=== PATIENT | female | born 2000 | race Caucasian/White ===

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

== ENCOUNTER 2023-09-03 10:53 | Observation (INO) ==
[2023-09-03 12:04] LABS: Basophils # (auto) 0.05 K/uL (0.00-0.20); Basophils % (auto) 0.8 %; Eosinophils # (auto) 0.06 K/uL (0.00-0.50); Hematocrit (blood only) 37.2 % (37.0-47.0); Hemoglobin 12.6 g/dl (12.0-16.0); Immature Granulocytes # (auto) 0.02 K/uL (0.01-0.20); Immature Granulocytes % (auto) 0.3 %; Lymphocytes % (auto) 28.7 %; Mean Corpuscular Hemoglobin 30.7 pg (25.0-34.0); Mean Corpuscular Hgb Conc 33.9 g/dL (32.0-36.0); Mean Corpuscular Volume 90.5 fL (80.0-100.0); Mean Platelet Volume 9.7 fL (9.4-12.4); Monocytes # (auto) 0.42 K/uL (0.11-0.59); Monocytes % (auto) 7.1 %; Neutrophils # (auto) 3.68 K/uL (1.40-6.50); Neutrophils % (auto) 62.1 %; Platelet Count 196 K/uL (130-400); RDW Coefficient of Variation 12.4 % (11.5-14.5); RDW Standard Deviation 40.7 fL (36.4-46.3); Red Blood Count 4.11 M/uL (4.20-5.40); White Blood Count 5.93 K/ul (4.8-10.8)
[2023-09-03 12:13] LABS: INR 1.1 (0.9-1.1); Partial Thromboplastin Time 28 Seconds (21-31); Prothrombin Time 11.9 Seconds (9.0-12.0)
[2023-09-03 12:25] LABS: Albumin Level 4.2 gm/dl (3.4-5.0); Bilirubin,Total 0.7 mg/dl (0.2-1.0); Calcium 9.2 mg/dl (8.6-10.3); Creatinine Clr Calc Pharmacy 153.7 ml/min; Est GFR (Non-African American) 129.4 ml/min; Globulin 2.1 gm/dl (2.5-4.0); Potassium 3.9 mmol/L (3.5-5.1); Total Protein 6.3 gm/dl (6.0-8.3)
--- NOTE | 2023-09-03 12:42 | Emergency Department Note ---
Impression & Plan Stroke-like symptoms, SLE (systemic lupus erythematosus), Right sided weakness ED Provider Note NAME: BENITO ROJAS AGE: 23 SEX: F : 2000 ARRIVES VIA: Ambulance INFORMANT: Patient ED PROVIDER(S): Fabricio Loco MD CHIEF COMPLAINT: Right sided weakness, referred. PLAN: Disposition: Admit MEDICAL DECISION MAKING: The patient is a pleasant 23-year-old woman with a past medical history of lupus, migraines/complex migraines, anxiety who presents to the emergency department via EMS from the infusion center where she was receiving an infusion for her lupus for evaluation of strokelike symptoms which are reported to have had onset at 1030 this morning when she was receiving her infusion. Patient reports she was starting to feel numbness in the right face and staff had commented that her right face appeared to droop. The patient then reported weakness in her right arm and leg as well. The patient is not sure if they thought the symptoms could be related to her infusion. The patient reports having similar episode in the setting of having severe migraine years ago where she had an MRI done and this was negative. However she reports is different and does not feel as though she has had any migraine that could be attributed to this episode. She does admit she has been under a lot of stress including recently moving back home to this area from [place]. Additionally she reports having relationship conflict with her boyfriend. Otherwise she denies any recent fevers, chills, cough congestion. She reports having right lower chest pain at the onset of her symptoms at the infusion center. Of note, the patient did arrive to emergency department during time of high volume, acuity and prolonged emergency department waiting times. Critical pathways initiated from triage for chief complaint of allergic reaction possibly to her infusion. On evaluation the patient is in no acute distress, afebrile stable vital signs. She appears clinically dry. She is exhibiting right facial weakness though also involving the eyebrow and right forehead. She tends to exhibit extremity weakness when raising her upper extremities and lower extremities but there is no drift rather the right side is raised to half the height of the left side and she states this is all she can raise it. While the patients examination is suggestive of a functional component given the patient's history of lupus cannot definitively exclude underlying coagulopathy and risk for stroke now presenting with component of embellishment. Thus, stroke alert was activated. Case was discussed with [facility] [place]. Moore. He agrees that he will assess the patient on the telestroke terminal. While the patient's symptoms may be functional in nature given that it is impossible to definitively determine this when symptoms are "disabling" TNK often will still be administered given this fact. EKG without overt acute ischemia. WBC, H/H and platelets within normal limits. Chemistry without metabolic acidosis. Electrolytes and LFTs are unremarkable. CT head and CT of the head and neck were performed and were negative for ICH, ischemia or severe narrowing or occlusion of large vessels. CTA of the chest also negative for PE or acute cardiopulmonary process [facility] [place] per Dr. Moore was completed. Appreciate consultation and recommendations. Given his examination and the patient maintaining that she feels weakness in her extremity which could be disabling the patient and mother were consented for TNK administration and risks and benefits were reviewed in detail in standard fashion. They did agree to proceed with TNK at this time. No contraindications were identified. TNK was administered. Case was discussed with Felicia [facility]ILL[facility] who will evaluate the patient for admission. Further management per admitting team including ICU admission for observation and MRI imaging. Further management per admitting team. Triage Nursing notes reviewed and agree them. Prior/external medical records reviewed Vital Signs: reviewed Differential diagnosis: Infection, dehydration, metabolic abnormality, hypo/hyperglycemia, electrolyte disturbance, anemia, hypoxia, cardiac sources, intracerebral event, toxicologic, neurologic, as well as other pathologies. ER treatment provided: See below. Diagnostics interpreted by me: ECG: Normal sinus rhythm, 63 bpm, no ectopy, incomplete right bundle branch block, no overt ST elevation or depression, QTc 403, QRS 94. Cardiac Monitoring: An order for continuous cardiac monitoring was placed and demonstrated Normal sinus rhythm, 63 bpm, no ectopy. Laboratory studies: See below Imaging studies: See below Consultation(s): [facility] [place], Dr. Oscar CASTILLO with [facility] HPI: The patient is a pleasant 23-year-old woman with a past medical history of lupus, migraines/complex migraines, anxiety who presents to the emergency department via EMS from the infusion center where she was receiving an infusion for her lupus for evaluation of strokelike symptoms which are reported to have had onset at 1030 this morning when she was receiving her infusion. Patient reports she was starting to feel numbness in the right face and staff had commented that her right face appeared to droop. The patient then reported weakness in her right arm and leg as well. The patient is not sure if they thought the symptoms could be related to her infusion. The patient reports having similar episode in the setting of having severe migraine years ago where she had an MRI done and this was negative. However she reports is different and does not feel as though she has had any migraine that could be attributed to this episode. She does admit she has been under a lot of stress including recently moving back home to this area from [place]. Additionally she reports having relationship conflict with her boyfriend. Otherwise she denies any recent fevers, chills, cough congestion. She reports having right lower chest pain at the onset of her symptoms at the infusion center. ROS: See above HPI for pertinent positives & negatives. A total of 10 systems reviewed and were otherwise negative. VITALS:See Below PHYSICAL EXAMINATION: GENERAL: Awake, alert, well-appearing, in no distress HENT: Normocephalic, atraumatic. Oropharynx unremarkable. EYES: Normal conjunctiva. Sclera non-icteric. EOMI. No nystamgus. PEARRL. NECK: Supple. No nuchal rigidity. FROM. No JVD. RESPIRATORY: Clear to auscultation. CARDIAC: Regular rate, normal rhythm. Extremities warm and well perfused. Pulses equal. ABDOMEN: Soft, non-distended. No tenderness to palpation. No rebound or guarding. No masses. MUSCULOSKELETAL: Chest examination reveals no tenderness. The back is symmetrical on inspection without obvious abnormality. There is no CVA tenderness to palpation. No joint edema. LOWER EXTREMITIES: Calves are equal size bilaterally and non-tender. No edema. No discoloration. NEURO: Exhibiting right facial weakness though also involving the eyebrow and right forehead. She tends to exhibit extremity weakness when raising her upper extremities and lower extremities but there is no drift rather the right side is raised to half the height of the left side and she states this is all she can raise it. DTRs within normal limits bilaterally. No clonus. SKIN: No rash or jaundice noted. Fabricio Loco MD Thrombolytics MDM Did the patient receive IV thrombolytics?: Yes Was there any delay in administration?: Yes Reason(s) for Delay: History of stroke mimic/complex migraine Past Med/Surg History Medical History (Updated 09/04/23 @ 02:43 by Fabricio Loco MD) Bipolar 1 disorder Fibromyalgia SLE (systemic lupus erythematosus) Depression GERD (gastroesophageal reflux disease) Suicidal behavior ODD (oppositional defiant disorder) Surgical History Hx of tonsillectomy Social History Smoking Status: Current every day smoker Tobacco Type: E-cigarettes / Vaping Hx Alcohol Use: Yes Alcohol type: beer Hx Substance Use: No Preferred Language: Amharic Communication Ability: Effective Program Director/Music Director Required: No Beliefs That Will Affect Care: None Current Living Situation: Parent Other Information That Helps Us Care for You: Yes (Anxiety r/t current life happenings) Feels Safe at Home: Yes Safety Concerns: Feels Safe At This Time Assistive Devices: None Allergies Allergies Allergy/AdvReac Type Severity Reaction Status Date / Time pineapple Allergy Mild TONGUE Verified 12/15/20 17:01 [facility] Home Meds Home Medications Medication Instructions Recorded Confirmed hydroxychloroquine 200 mg tablet 400 mg PO HS 07/04/20 09/03/23 clonazepam 0.5 mg tablet 0.5 mg PO BID PRN Anxiety 10/15/20 09/03/23 anifrolumab-fnia 300 mg/2 mL (150 300 mg IV WK 09/03/23 09/03/23 mg/mL) intravenous solution (Saphnelo) cyanocobalamin (vitamin B-12) 100 100 mcg PO DAILY 09/03/23 09/03/23 mcg tablet cyclobenzaprine 5 mg tablet 5 mg PO BID PRN muscle spasms 09/03/23 09/03/23 ergocalciferol (vitamin D2) 50,000 50,000 unit PO 2XWK 09/03/23 09/03/23 unit tablet etonogestrel 68 mg subdermal 68 mg subdermal UD 09/03/23 09/03/23 implant (Nexplanon) prednisone 10 mg tablet See Rx Instructions .Route .COMPLEX 09/03/23 09/03/23 prednisone 5 mg tablet 5 mg PO DAILY 09/03/23 09/03/23 Results & Data (ED) Vital Signs Vital Signs - 24 hr 09/03/23 11:02 09/03/23 11:10 09/03/23 11:30 Temperature 36.9 C Temperature Source Oral Pulse Rate 67 64 74 Pulse Rate [Apical] Pulse Rate from SpO2 Sensor 65 70 Respiratory Rate 14 19 14 Respiratory Effort / Characteristics Non-Labored Accessory Muscle Use Respiratory Depth Normal Blood Pressure 111/65 Blood Pressure [Right Arm] Blood Pressure Mean 80 Blood Pressure Mean [Right Arm] Pulse Oximetry 100 100 99 Oxygen Delivery Method Room Air Sepsis Recent Fever Within 48 Hours No Sepsis New/Unexplained Change in Mental Status No Sepsis Action Taken by Nursing No Action Required 09/03/23 11:30 09/03/23 12:00 09/03/23 12:00 Temperature Temperature Source Pulse Rate 75 Pulse Rate [Apical] Pulse Rate from SpO2 Sensor 73 Respiratory Rate 15 Respiratory Effort / Characteristics Respiratory Depth Blood Pressure 106/67 109/66 Blood Pressure [Right Arm] Blood Pressure Mean 81 82 Blood Pressure Mean [Right Arm] Pulse Oximetry 98 Oxygen Delivery Method Sepsis Recent Fever Within 48 Hours Sepsis New/Unexplained Change in Mental Status Sepsis Action Taken by Nursing 09/03/23 12:01 09/03/23 12:10 09/03/23 12:20 Temperature Temperature Source Pulse Rate 59 L 63 67 Pulse Rate [Apical] Pulse Rate from SpO2 Sensor 62 64 Respiratory Rate 18 16 Respiratory Effort / Characteristics Respiratory Depth Blood Pressure Blood Pressure [Right Arm] Blood Pressure Mean Blood Pressure Mean [Right Arm] Pulse Oximetry 99 99 Oxygen Delivery Method Sepsis Recent Fever Within 48 Hours Sepsis New/Unexplained Change in Mental Status Sepsis Action Taken by Nursing 09/03/23 12:40 09/03/23 12:41 09/03/23 12:50 Temperature Temperature Source Pulse Rate 81 Pulse Rate [Apical] 68 Pulse Rate from SpO2 Sensor 81 Respiratory Rate 20 16 Respiratory Effort / Characteristics Non-Labored Respiratory Depth Normal Blood Pressure 118/69 Blood Pressure [Right Arm] 118/69 Blood Pressure Mean 86 Blood Pressure Mean [Right Arm] 85 Pulse Oximetry 100 100 Oxygen Delivery Method Room Air Sepsis Recent Fever Within 48 Hours Sepsis New/Unexplained Change in Mental Status Sepsis Action Taken by Nursing 09/03/23 13:00 09/03/23 13:00 09/03/23 13:15 Temperature Temperature Source Pulse Rate 102 H 62 Pulse Rate [Apical] Pulse Rate from SpO2 Sensor Respiratory Rate 20 12 Respiratory Effort / Characteristics Respiratory Depth Blood Pressure 126/75 Blood Pressure [Right Arm] Blood Pressure Mean 96 Blood Pressure Mean [Right Arm] Pulse Oximetry Oxygen Delivery Method Sepsis Recent Fever Within 48 Hours Sepsis New/Unexplained Change in Mental Status Sepsis Action Taken by Nursing 09/03/23 13:38 Temperature Temperature Source Pulse Rate Pulse Rate [Apical] 67 Pulse Rate from SpO2 Sensor Respiratory Rate 14 Respiratory Effort / Characteristics Non-Labored Respiratory Depth Normal Blood Pressure Blood Pressure [Right Arm] 110/73 Blood Pressure Mean Blood Pressure Mean [Right Arm] 85 Pulse Oximetry 100 Oxygen Delivery Method Room Air Sepsis Recent Fever Within 48 Hours Sepsis New/Unexplained Change in Mental Status Sepsis Action Taken by Nursing Laboratory Data Attestation: I reviewed the patient's lab results. 09/03/23 11:00 09/03/23 20:37 Lab Results 09/03/23 Range/Units 11:00 WBC 5.93 (4.8-10.8) K/ul RBC 4.11 L (4.20-5.40) M/uL Hgb 12.6 (12.0-16.0) g/dl Hct 37.2 (37.0-47.0) % MCV 90.5 (80.0-100.0) fL MCH 30.7 (25.0-34.0) pg MCHC 33.9 (32.0-36.0) g/dL RDW Std Deviation 40.7 (36.4-46.3) fL RDW Coeff of Igor 12.4 (11.5-14.5) % Plt Count 196 (130-400) K/uL MPV 9.7 (9.4-12.4) fL Immature Gran % (Auto) 0.3 % Neut % (Auto) 62.1 % Lymph % (Auto) 28.7 % Vilas % (Auto) 7.1 % Eos % (Auto) 1.0 % Baso % (Auto) 0.8 % Neut # (Auto) 3.68 (1.40-6.50) K/uL Lymph # (Auto) 1.70 (1.20-3.40) K/uL Vilas # (Auto) 0.42 (0.11-0.59) K/uL Eos # (Auto) 0.06 (0.00-0.50) K/uL Baso # (Auto) 0.05 (0.00-0.20) K/uL Immature Gran # (Auto) 0.02 (0.01-0.20) K/uL PT 11.9 (9.0-12.0) Seconds INR 1.1 (0.9-1.1) APTT 28 (21-31) Seconds PTT Ratio 1.0 Sodium 138 (136-145) mmol/L Potassium 3.9 (3.5-5.1) mmol/L Chloride 110 H (98-107) mmol/L Carbon Dioxide 24 (21-32) mmol/L Anion Gap 4 (3-11) BUN 12 (6-23) mg/dl Creatinine 0.60 (0.6-1.2) mg/dl Est Cr Clr Drug Dosing 153.7 ml/min Est GFR ( Amer) 150.0 ml/min Est GFR (Non-Af Amer) 129.4 ml/min BUN/Creatinine Ratio 20.0 (10-20) Glucose 79 (70-99(Fasting)) mg/dl Calcium 9.2 (8.6-10.3) mg/dl Magnesium 1.9 (1.7-2.4) mg/dl Total Bilirubin 0.7 (0.2-1.0) mg/dl AST 13 (13-39) U/L ALT 10 (7-52) U/L Alkaline Phosphatase 45 (34-104) U/L Troponin I High Sens < 2.3 (0-14) pg/ml Total Protein 6.3 (6.0-8.3) gm/dl Albumin 4.2 (3.4-5.0) gm/dl Globulin 2.1 L (2.5-4.0) gm/dl Albumin/Globulin Ratio 2.0 (0.9-2) TSH 1.349 (0.300-4.500) uIu/ml HCG, Quant < 1 mIU/ml Administered Medications Cyclobenzaprine HCl (Cyclobenzaprine Hcl 5 Mg Tab) 5 mg PO BID PRN PRN Reason: muscle spasms Stop: 10/03/23 16:00 Last Admin: 09/03/23 20:58 Dose: 5 mg Documented By: MNM Hydroxychloroquine Sulfate (Hydroxychloroquine Sulfate 200 Mg Tab) 400 mg PO HS HERBIE Stop: 10/03/23 20:59 Last Admin: 09/03/23 20:16 Dose: 400 mg Documented By: TANIYA Acetaminophen (Ofirmev) 1,000 mg in 100 mls @ 400 mls/hr IV Q8H PRN PRN Reason: Pain Stop: 09/06/23 15:42 Last Infusion: 09/03/23 16:05 Dose: Infused Documented By: Admin: 09/03/23 15:50 Dose: 400 mls/hr Documented By: MONSE Miscellaneous (Icu Protocol For Hyperglycemia) 1 each N/A ACHS [facility] Stop: 09/05/23 16:29 Last Admin: 09/03/23 20:16 Dose: Not Given Documented By: Admin: 09/03/23 17:32 Dose: Not Given Documented By: MONSE Discontinued Medications Acetaminophen (Acetaminophen 1000 Mg/100 Ml Iv) Confirm Administered Dose 1,000 mg IV .STK-MED ONE Stop: 09/03/23 15:47 Last Admin: 09/03/23 15:57 Dose: Not Given Documented By: MONSE Sodium Chloride (Nss) 1,000 mls @ 999 mls/hr IV .Q1H1M ONE Stop: 09/03/23 13:35 Last Infusion: 09/03/23 13:47 Dose: Infused Documented By: Admin: 09/03/23 12:45 Dose: 999 mls/hr Documented By: NELDA Acetaminophen (Ofirmev) 1,000 mg in 100 mls @ 400 mls/hr IV NOW STA Stop: 09/03/23 12:49 Last Infusion: 09/03/23 13:04 Dose: Infused Documented By: Admin: 09/03/23 12:44 Dose: 400 mls/hr Documented By: NELDA Tenecteplase 18 mg/ Syringe 3.6 mls @ 43.2 mls/min IV TODAY@1335 [facility]; Protocol Stop: 09/03/23 15:00 Last Admin: 09/03/23 15:56 Dose: Not Given Documented By: MONSE Ioversol (Optiray 320 125ml) 118 ml IV ONCE ONE Stop: 09/03/23 12:45 Last Admin: 09/03/23 12:44 Dose: 118 ml Documented By: EULOGIO Miscellaneous (Stat Iv/Im) 1 each N/A NOW STA Stop: 09/03/23 14:42 Last Admin: 09/03/23 14:45 Dose: 1 each Documented By: KATHERINE Ondansetron HCl (Ondansetron Inj 2 Mg/Ml 2 Ml Vial) 4 mg IV NOW STA Stop: 09/03/23 12:36 Last Admin: 09/03/23 12:44 Dose: 4 mg Documented By: NELDA Sodium Chloride (Sodium Chloride 0.9% 10ml Flush) 20 ml IV NOW STA Stop: 09/03/23 14:42 Last Admin: 09/03/23 14:45 Dose: 20 ml Documented By: KATHERINE Imaging Data Radiologist's Impression: Head CT 09/03/23 12:25 CT SCAN OF THE BRAIN WITHOUT IV CONTRAST CLINICAL HISTORY: CT of the brain dated 01/29/2022. MRI of the brain dated 01/29/2022. TECHNIQUE: Unenhanced axial CT scan of the brain is performed from the vertex to the skull base. A dose lowering technique was utilized adhering to the principles of ALARA. FINDINGS: Brain parenchyma: The brain parenchyma is normal in appearance. There is no hemorrhage, mass effect, or evidence of acute territorial ischemia by CT criteria. Luis-white matter differentiation is preserved. No extra-axial fluid collection is seen. Ventricles, sulci, cisterns: Normal in configuration. Intracranial vasculature: The visualized intracranial vasculature at the skull base is normal in appearance. Calvarium: Unremarkable. Sinuses and mastoids: The visualized paranasal sinuses are clear. The mastoid air cells are well pneumatized. Orbits: The bony orbits are grossly intact. IMPRESSION: There is no hemorrhage, mass effect, or evidence of acute territorial ischemia by CT criteria. ACT 112: Negative or not required by law. Electronically signed by: Mani Esparza M.D. 09/03/2023 12:46 PM Head CTA 09/03/23 12:25 HEAD CTA HISTORY: Right sided weakness TECHNIQUE: Multiaxial CT images of the head were performed following the intravenous administration of contrast to evaluate the major cerebral vessels. 3D/MIP images were also obtained. Sagittal and coronal reformats were reviewed. A dose lowering technique was utilized adhering to the principles of ALARA. COMPARISON: Head CTA 01/29/2022. FINDINGS: There is no mass, hematoma, midline shift, or acute infarct. Visualized intracranial internal carotid arteries, distal vertebral arteries, and basilar artery are widely patent. There is no significant stenosis, occlusion, or aneurysm seen within the bilateral ACAs, MCAs, or monotypist. The major dural venous sinuses are patent. There is a persistent left posterior circulation again noted. IMPRESSION: No significant stenosis, occlusion, or aneurysm within the [place]. ACT 112: Negative or not required by law. Electronically signed by: Scott Hernández M.D. 09/03/2023 1:04 PM Neck CTA 09/03/23 12:25 CT ANGIOGRAM OF THE NECK CLINICAL HISTORY: Right-sided weakness. Strokelike symptoms. COMPARISON STUDY: CT angiogram of the neck dated 01/29/2022. TECHNIQUE: Following the IV administration of 118 of Optiray 320, CT angiogram of the neck was performed from the aortic arch to the skull base. Images are reviewed in the axial, sagittal, and coronal planes. 3-D MIPS images are created and assessed. IV contrast was administered without complication. All measurements were calculated based on NASCET criteria. A dose lowering technique was utilized adhering to the principles of ALARA. FINDINGS: Thoracic aorta: Visualized portions of the thoracic aorta are normal in caliber. The aortic arch demonstrates standard 3-vessel anatomy. Right carotid arterial system: The right common carotid artery is widely patent, as are the right internal and external carotid arteries. Left carotid arterial system: The left common carotid artery is widely patent, as are the left internal and external carotid arteries. Vertebral arteries: Widely patent bilaterally noting left-sided dominance. Subclavian arteries: Widely patent bilaterally. Intracranial vasculature: The visualized intracranial vessels at the skull base are patent. Jugular veins: Patent bilaterally. Brain parenchyma: The visualized brain parenchyma the skull base is within normal limits. Lung apices: Partially visualized upper lobe lung parenchyma appears clear. Soft tissues: The visualized pharyngeal soft tissues are normal in appearance noting angiographic phase technique. The oropharyngeal airway appears widely patent. The salivary and thyroid glands are normal in appearance. No cervical lymphadenopathy is seen. Skeletal structures: The visualized calvarium at the skull base appears intact. The imaged cervical spine is within normal limits. Sinuses and mastoids: There is a 2.1 cm retention cyst in the right maxillary antrum. The mastoid air cells are well pneumatized. IMPRESSION: Unremarkable CT angiogram of the neck. ACT 112: Negative or not required by law. Electronically signed by: Mani Esparza M.D. 09/03/2023 1:01 PM Chest CTA 09/03/23 12:26 CT ANGIOGRAPHY OF THE CHEST, PULMONARY EMBOLUS PROTOCOL CLINICAL HISTORY: Right sided weakness, cp, SLE, r/o PE COMPARISON STUDY: Chest CT August 23, 2020. Chest radiograph October 24, 2022. TECHNIQUE: Following IV administration of 118 mL of Optiray, helical axial images of the chest were obtained utilizing the pulmonary embolus protocol. Maximal intensity projections and sagittal and coronal reformats were viewed on an independent 3D workstation. IV contrast was administered without complication. Automated exposure control was utilized for the study. A dose lowering technique was utilized adhering to the principles of ALARA. CT DOSE: 1973.95 mGy.cm FINDINGS: No pulmonary emboli are identified. There is no thoracic aortic dissection. Size of the heart is normal. There is no pericardial effusion. No enlarged thoracic lymph nodes are present. There is no pneumothorax or pleural effusion. No consolidation is identified. A 4 mm subpleural left lower lobe nodule on image [address] of August 23, 2020. This is benign. Upper abdomen is unremarkable. IMPRESSION: 1. No pulmonary emboli identified. 2. No acute intrathoracic findings ACT 112: Negative or not required by law. Electronically signed by: Checo Johnson M.D. 09/03/2023 12:54 PM Discharge Plan Visit Data Chief Complaint: Allergic Reaction Stated Complaint: RIGHT SIDE NUMBNESS ED Provider: Fabricio Loco Discharge Problem: Stroke-like symptoms, SLE (systemic lupus erythematosus), Right sided weakness Patient Disposition: Admitted As Inpatient Discharge Instructions Interventions: ED Discharge Assessment Last Done: 09/03/23 14:59 Discharge Problem: SLE (systemic lupus erythematosus) Qualifiers: Systemic lupus erythematosus type: unspecified Systemic lupus erythematosus organ involvement: unspecified Qualified Code(s): M32.9 - Systemic lupus erythematosus, unspecified
[2023-09-03] MEDS: ONDANSETRON INJ 2 MG/ML 2 ML VIAL IV STA (12:44)
[2023-09-03] MEDS: ACETAMINOPHEN 1,000 MG/100 ML VIAL IV STA (12:44)
[2023-09-03] MEDS: OPTIRAY 320 125ml IV ONE (12:44)
[2023-09-03] MEDS: SODIUM CHLORIDE 0.9% 1,000 ML IV ONE (12:45)
--- NOTE | 2023-09-03 12:48 | CT Scan Report ---
CT SCAN OF THE BRAIN WITHOUT IV CONTRAST CLINICAL HISTORY: CT of the brain dated 01/29/2022. MRI of the brain dated 01/29/2022. TECHNIQUE: Unenhanced axial CT scan of the brain is performed from the vertex to the skull base. A d ose lowering technique was utilized adhering to the principles of ALA. FINDINGS: Brain parenchyma: The brain parenchyma is normal in appearance. There is no hemorrhage, mass effect, or evidence of acute territorial ischemia by CT criteria. Luis-white matter differentiation is preser stefania. No extra-axial fluid collection is seen. Ventricles, sulci, cisterns: Normal in configuration. Intracranial vasculature: The visualized intracranial vasculature at the skull base is normal in appe arance. Calvarium: Unremarkable. Sinuses and mastoids: The visualized paranasal sinuses are clear. The mastoid air cells are well pneu matized. Orbits: The bony orbits are grossly intact. IMPRESSION: There is no hemorrhage, mass effect, or evidence of acute territorial ischemia by CT michelle watkins. ACT 112: Negative or not required by law. Electronically signed by: Mani Esparza M.D. 09/03/2023 12:46 PM
--- NOTE | 2023-09-03 12:56 | CT Scan Report ---
CT ANGIOGRAPHY OF THE CHEST, PULMONARY EMBOLUS PROTOCOL CLINICAL HISTORY: Right sided weakness, cp, SLE, r/o PE COMPARISON STUDY: Chest CT August 23, 2020. Chest radiograph October 24, 2022. TECHNIQUE: Following IV administration of 118 mL of Optiray, helical axial images of the chest were o btained utilizing the pulmonary embolus protocol. Maximal intensity projections and sagittal and cor onal reformats were viewed on an independent 3D workstation. IV contrast was administered without co mplication. Automated exposure control was utilized for the study. A dose lowering technique was ut ilized adhering to the principles of ALARA. CT DOSE: 1973.95 mGy.cm FINDINGS: No pulmonary emboli are identified. There is no thoracic aortic dissection. Size of the he art is normal. There is no pericardial effusion. No enlarged thoracic lymph nodes are present. There is no pneumothorax or pleural effusion. No consolidation is identified. A 4 mm subpleural left lower lobe nodule on image [address] of August 23, 2020. This is benign. Upper abdomen is unr emarkable. IMPRESSION: 1. No pulmonary emboli identified. 2. No acute intrathoracic findings ACT 112: Negative or not required by law. Electronically signed by: Checo Johnson M.D. 09/03/2023 12:54 PM
--- NOTE | 2023-09-03 13:02 | CT Scan Report ---
CT ANGIOGRAM OF THE NECK CLINICAL HISTORY: Right-sided weakness. Strokelike symptoms. COMPARISON STUDY: CT angiogram of the neck dated 01/29/2022. TECHNIQUE: Following the IV administration of 118 of Optiray 320, CT angiogram of the neck was perfor med from the aortic arch to the skull base. Images are reviewed in the axial, sagittal, and coronal p lanes. 3-D MIPS images are created and assessed. IV contrast was administered without complication. A ll measurements were calculated based on NASCET criteria. A dose lowering technique was utilized adh ering to the principles of ALARA. FINDINGS: Thoracic aorta: Visualized portions of the thoracic aorta are normal in caliber. The aortic arch demo nstrates standard 3-vessel anatomy. Right carotid arterial system: The right common carotid artery is widely patent, as are the right int ernal and external carotid arteries. Left carotid arterial system: The left common carotid artery is widely patent, as are the left news internship al and external carotid arteries. Vertebral arteries: Widely patent bilaterally noting left-sided dominance. Subclavian arteries: Widely patent bilaterally. Intracranial vasculature: The visualized intracranial vessels at the skull base are patent. Jugular veins: Patent bilaterally. Brain parenchyma: The visualized brain parenchyma the skull base is within normal limits. Lung apices: Partially visualized upper lobe lung parenchyma appears clear. Soft tissues: The visualized pharyngeal soft tissues are normal in appearance noting angiographic pha se technique. The oropharyngeal airway appears widely patent. The salivary and thyroid glands are nor mal in appearance. No cervical lymphadenopathy is seen. Skeletal structures: The visualized calvarium at the skull base appears intact. The imaged cervical s pine is within normal limits. Sinuses and mastoids: There is a 2.1 cm retention cyst in the right maxillary antrum. The mastoid air cells are well pneumatized. IMPRESSION: Unremarkable CT angiogram of the neck. ACT 112: Negative or not required by law. Electronically signed by: Mani Esparza M.D. 09/03/2023 1:01 PM
[2023-09-03 13:03] LABS: Magnesium 1.9 mg/dl (1.7-2.4)
--- NOTE | 2023-09-03 13:05 | CT Scan Report ---
HEAD CTA HISTORY: Right sided weakness TECHNIQUE: Multiaxial CT images of the head were performed following the intravenous administration o f contrast to evaluate the major cerebral vessels. 3D/MIP images were also obtained. Sagittal and co dagmar reformats were reviewed. A dose lowering technique was utilized adhering to the principles of A JESU. COMPARISON: Head CTA 01/29/2022. FINDINGS: There is no mass, hematoma, midline shift, or acute infarct. Visualized intracranial internal medicine nurse practitioner al carotid arteries, distal vertebral arteries, and basilar artery are widely patent. There is no sig nificant stenosis, occlusion, or aneurysm seen within the bilateral ACAs, MCAs, or environmental compliance engineer. The major du ral venous sinuses are patent. There is a persistent left posterior circulation again noted. IMPRESSION: No significant stenosis, occlusion, or aneurysm within the [place]. ACT 112: Negative or not required by law. Electronically signed by: Scott Hernández M.D. 09/03/2023 1:04 PM
[2023-09-03 13:31] LABS: Thyroid Stimulating Hormone 1.349 uIu/ml (0.300-4.500)
[2023-09-03] MEDS: TENECTEPLASE 18 MG in SYRINGE 0 ML IV ONE (13:35)
--- NOTE | 2023-09-03 14:28 | Critical Care Consultation ---
Date of Consultation September 03, 2023 Assessment & Plan (1) Stroke-like symptoms: (2) SLE (systemic lupus erythematosus): (3) Anxiety and depression: Plan Reason Critically Ill: 23-year-old female with past medical history of lupus admitted to hospital for facial numbness. Got TN K in the ED. Sent to ICU for monitoring Neuro - [facility] ICU: Negative --Strokelike symptoms S/p TNK in the ED 09/03/2023 Continue with neurochecks Repeat CT head in 24 hours Aspirin after 24 hours if no bleed --History of anxiety/depression On clonazepam and buspirone Cardiac - -- No acute issues Respiratory - CTA chest 09/03/2023 personally reviewed: Small cyst left lower lobe Left lower lobe pleural-based 4 mm pulmonary nodule No significant mediastinal lymphadenopathy GI - -- No acute issues RENAL/LYTES - -- No acute issues Monitor BUNs/creatinine ENDO - -- ICU hyperglycemia protocol HEME - -- Monitor H&H ID - -- No concern for any infectious etiology Rheumatology- -- SLE with recent flareup On anifrolumab weekly along with hydroxychloroquine at home Was also taking prednisone --Prophylaxis VTE: None GI: None Lines: Peripheral Diet: N.p.o. Plan: Continue with neurochecks as per protocol Aspiration precautions Follow-up MRI of the brain Continue with home dose of prednisone and tapered off as per the original plan Please note the above document was generated using voice recognition software. It may contain grammatical, syntax or spelling errors.Any formal questions or concerns about the content, text or information contained within the body of this dictation should be directly addressed to the provider for clarification. History of Present Illness History of Present Illness 23-year-old female presents to the hospital with complaints of numbness of the face Past medical history: Lupus, history of migraine Patient got TNK for strokelike symptoms and sent to the ICU for further monitoring At the time of examination patient's sister as well as mother were in the room. Patient stated that she had onset of numbness on the right face as well as weakness of the right upper and right lower extremity. She does have history of migraine and has had complex migraine in the past with some similar symptoms but is always followed by pain and and preceded by aura which did not happen this time. She did have a recent flare of her lupus for which she was given prednisone. Does have chronic subjective fever and chills which she relates to lupus. Nothing change inadvertently. No dysuria, or diarrhea. No nausea vomiting Does have some abdominal discomfort which is also chronic. No blurry vision right now. Denies any headache right now Social history: Smokes socially and also vapes. Allergies Allergy/AdvReac Type Severity Reaction Status Date / Time pineapple Allergy Mild TONGUE Verified 12/15/20 17:01 SWELLS Home Medications Medication Instructions Recorded Confirmed Type hydroxychloroquine 200 mg tablet 400 mg PO HS 07/04/20 09/03/23 History clonazepam 0.5 mg tablet 0.5 mg PO BID PRN Anxiety 10/15/20 09/03/23 History anifrolumab-fnia 300 mg/2 mL (150 300 mg IV WK 09/03/23 09/03/23 History mg/mL) intravenous solution (Saphnelo) cyanocobalamin (vitamin B-12) 100 100 mcg PO DAILY 09/03/23 09/03/23 History mcg tablet cyclobenzaprine 5 mg tablet 5 mg PO BID PRN muscle spasms 09/03/23 09/03/23 History ergocalciferol (vitamin D2) 50,000 50,000 unit PO 2XWK 09/03/23 09/03/23 History unit tablet etonogestrel 68 mg subdermal 68 mg subdermal UD 09/03/23 09/03/23 History implant (Nexplanon) prednisone 10 mg tablet See Rx Instructions .Route .COMPLEX 09/03/23 09/03/23 History prednisone 5 mg tablet 5 mg PO DAILY 09/03/23 09/03/23 History Patient History Medical History (Updated 09/03/23 @ 16:10 by Karl Winter MD, [facility]) Bipolar 1 disorder Depression SLE (systemic lupus erythematosus) GERD (gastroesophageal reflux disease) Fibromyalgia Suicidal behavior ODD (oppositional defiant disorder) Surgical History Hx of tonsillectomy Social History Smoking Status: Current some day smoker Tobacco Type: E-cigarettes / Vaping Preferred Language: Tuval[place] Feels Safe at Home: Yes Review of Systems 2 Review of Systems: All systems reviewed & are unremarkable except as noted in HPI & below Physical Exam 2 Physical Exam: Constitutional: No acute distress HEENT: EOMI, PERRLA, no nystagmus, minimal slurring of speech. No clear facial droop appreciated Respiratory system: Good air entry bilaterally, no wheeze, no rhonchi, no crackles CVS: S1-S2 positive, no murmurs or gallops Abdomen: Soft, nontender, nondistended, positive bowel sounds x4 Extremities: +2 pulses bilaterally radialis/ dorsalis pedis, no cyanosis, no edema Neuro: Awake alert oriented x3, cranial nerves II through XII grossly intact, strength left upper and left lower extremity 5 out of 5, right upper extremity 3/5, right lower extremity 4/5 Psych: Normal mood and affect G/U: No Lopez Skin: no rashes, warm and dry Lymphatic: no cervical or axillary lymphadenopathy Results & Data Results & Data Vital Signs (Past 12 Hours) Vital Signs Temp Pulse Pulse Resp BP BP Pulse Ox 09/03/23 13:38 67 14 110/73 100 09/03/23 13:15 62 12 09/03/23 13:00 126/75 09/03/23 13:00 102 H 20 09/03/23 12:50 81 16 100 09/03/23 12:41 68 20 118/69 100 09/03/23 12:40 118/69 09/03/23 12:20 67 16 99 09/03/23 12:10 63 18 99 09/03/23 12:01 59 L 09/03/23 12:00 109/66 09/03/23 12:00 75 15 98 09/03/23 11:30 106/67 09/03/23 11:30 74 14 99 09/03/23 11:10 64 19 100 09/03/23 11:02 36.9 C 67 14 111/65 100 O2 Del Method 09/03/23 13:38 Room Air 09/03/23 13:15 09/03/23 13:00 09/03/23 13:00 09/03/23 12:50 09/03/23 12:41 Room Air 09/03/23 12:40 09/03/23 12:20 09/03/23 12:10 09/03/23 12:01 09/03/23 12:00 09/03/23 12:00 09/03/23 11:30 09/03/23 11:30 09/03/23 11:10 09/03/23 11:02 Room Air Laboratory Results 09/03/23 11:00 09/03/23 11:00 Coding Level of Care Code 84852 IN/OBS CONSULT LVL 4,60M Diagnoses Stroke-like symptoms R29.90 SLE (systemic lupus erythematosus) M32.9 Anxiety and depression F41.9; F32.A
[2023-09-03] MEDS: SODIUM CHLORIDE 0.9% 10ML FLUSH IV STA (14:45)
[2023-09-03] MEDS: STAT IV/IM STA (14:45)
[2023-09-03] MEDS ORDERED: No Aspirin within 24hrs of THROMBOLYTIC-Stroke PO SCH (14:45)
[2023-09-03] MEDS ORDERED: PHARMACIST DISCHARGE MED REC CONSULT PRN (15:38)
[2023-09-03] MEDS: ACETAMINOPHEN 1,000 MG/100 ML VIAL IV PRN (15:50)
--- NOTE | 2023-09-03 15:52 | Neurology Consultation ---
Date of Consultation September 03, 2023 Assessment & Plan (1) Stroke-like symptoms: 23F with a PMH of Lupus, bipolar and PTSD who presents with right sided weaknes sp TNK. On exam she reports continued right sided weakness/numbness which is improving. CT and CTA were unremarkable and she was given TNK. She is at increased risk for thromboembolic events secondary to her Lupus diagnosis and MRI is pending. If MRI shows a stroke she will need a hypercoagulable work up and echo with bubble study. If MRI is negative the differential is acephalic migraine with aura vs conversion disorder and she has risk factors for both. Plan -- post-TNK care per ICU -- [address] head -- ASA after repeat CT head -- MRI pending -- echocardiogram with bubble study -- hypercoagulable work up pending echo and presence/absence of shunt PFO -- PT/OT/BUZZLE BUFFER -- no indication for statin Telehealth Consultation Telehealth Information Telehealth Information: I performed this visit using a real-time telehealth connection between my location and the patients location ([facility]). After connecting through interactive tele-video, patient was identified by name and date of and/or wristband check.Patient (or authorized healthcare new accounts representative) was informed that this was a telemedicine visit and it was being conducted confidentially over secure lines. My office door was closed and no one else was present in the room with me.Patient (or authorized healthcare new accounts representative) provided consent to proceed with the visit, expressed an understanding of privacy and security of the telemedicine visit, and gave permission to have a hospital new accounts representative in the room in order to assist with the visit and to conduct portions of the visit, as needed. I informed the patient (or authorized healthcare new accounts representative) that I reviewed their record and presented the opportunity for them to ask any questions regarding the visit today. The patient agreed to participate. History of Present Illness Reason for Consultation: Stroke symptoms s/p TNK Attending Physician: Nina Peacock MD History of Present Illness Zhane Galvez is a 23F with a PMH of Bipolar, Lupus on Hydroxychloroquine and Belimumab and migraine with aura who presents with right sided weakness. She reports that she was at the infusion center getting her belimumab infusion when she started having tingling in the right side. This was followed by numbness of the right side and then progressed to weakness. The progression took about 5 minutes. She reports that her whole right side was numb and weak, but that it is now doing much better. She continues to endorse mild numbness of the right and mild weakness but can move everything against gravity. She does report a lupus flare over the last week with increased joint pain, fatigue, weakness, and muscle pain from her baseline. She had a similar experience several years ago when she couldn't move one side of her body but that was in the setting of a terrible headache. She denies a current headache. She denies fevers, SOB, nausea, vertigo but did endorse dizziness while getting her IV placed, vision changes or difficulty finding the right words. She says that this week has been the hardest week of her life and she is under an unbelievable amount of stress. Allergies Allergy/AdvReac Type Severity Reaction Status Date / Time pineapple Allergy Mild TONGUE Verified 12/15/20 17:01 SWELLS Home Medications Medication Instructions Recorded Confirmed Type hydroxychloroquine 200 mg tablet 400 mg PO HS 07/04/20 09/03/23 History clonazepam 0.5 mg tablet 0.5 mg PO BID PRN Anxiety 10/15/20 09/03/23 History anifrolumab-fnia 300 mg/2 mL (150 300 mg IV WK 09/03/23 09/03/23 History mg/mL) intravenous solution (Saphnelo) cyanocobalamin (vitamin B-12) 100 100 mcg PO DAILY 09/03/23 09/03/23 History mcg tablet cyclobenzaprine 5 mg tablet 5 mg PO BID PRN muscle spasms 09/03/23 09/03/23 History ergocalciferol (vitamin D2) 50,000 50,000 unit PO 2XWK 09/03/23 09/03/23 History unit tablet etonogestrel 68 mg subdermal 68 mg subdermal UD 09/03/23 09/03/23 History implant (Nexplanon) prednisone 10 mg tablet See Rx Instructions .Route .COMPLEX 09/03/23 09/03/23 History prednisone 5 mg tablet 5 mg PO DAILY 09/03/23 09/03/23 History Patient History Medical History (Updated 09/03/23 @ 16:10 by Karl Winter MD, [facility]) Bipolar 1 disorder Depression SLE (systemic lupus erythematosus) GERD (gastroesophageal reflux disease) Fibromyalgia Suicidal behavior ODD (oppositional defiant disorder) Surgical History Hx of tonsillectomy Social History Smoking Status: Current some day smoker Tobacco Type: E-cigarettes / Vaping Preferred Language: Maori Feels Safe at Home: Yes Review of Systems See HPI Physical Exam Awake, alert and orientated x4, no aphasia or neglect. pupils equal, EOM intact, right face numbness, intermittent right face weakness, tongue midline. holds all extremities against gravity, drift without pronation in the right arm. right hemibody sensation loss, Gait deferred, no dysmetria on FTN NIH 2 for right face weakness and sensation loss Results & Data Vital Signs (Past 12 Hours) Vital Signs Temp Pulse Pulse Resp BP BP Pulse Ox 09/03/23 14:59 71 20 103/66 100 09/03/23 14:49 67 20 100 09/03/23 14:49 67 20 103/66 100 09/03/23 13:38 67 14 110/73 100 09/03/23 13:15 62 12 09/03/23 13:00 126/75 09/03/23 13:00 102 H 20 09/03/23 12:50 81 16 100 09/03/23 12:41 68 20 118/69 100 09/03/23 12:40 118/69 09/03/23 12:20 67 16 99 09/03/23 12:10 63 18 99 09/03/23 12:01 59 L 09/03/23 12:00 109/66 09/03/23 12:00 75 15 98 09/03/23 11:30 106/67 09/03/23 11:30 74 14 99 09/03/23 11:10 64 19 100 09/03/23 11:02 36.9 C 67 14 111/65 100 O2 Del Method 09/03/23 14:59 Room Air 09/03/23 14:49 Room Air 09/03/23 14:49 Room Air 09/03/23 13:38 Room Air 09/03/23 13:15 09/03/23 13:00 09/03/23 13:00 09/03/23 12:50 09/03/23 12:41 Room Air 09/03/23 12:40 09/03/23 12:20 09/03/23 12:10 09/03/23 12:01 09/03/23 12:00 09/03/23 12:00 09/03/23 11:30 09/03/23 11:30 09/03/23 11:10 09/03/23 11:02 Room Air Laboratory Results Abnormal Lab Results 09/03/23 11:00 WBC 5.93 RBC 4.11 L Hgb 12.6 Hct 37.2 MCV 90.5 MCH 30.7 MCHC 33.9 RDW Std Deviation 40.7 RDW Coeff of Igor 12.4 Plt Count 196 MPV 9.7 Immature Gran % (Auto) 0.3 Neut % (Auto) 62.1 Lymph % (Auto) 28.7 Toole % (Auto) 7.1 Eos % (Auto) 1.0 Baso % (Auto) 0.8 Neut # (Auto) 3.68 Lymph # (Auto) 1.70 Toole # (Auto) 0.42 Eos # (Auto) 0.06 Baso # (Auto) 0.05 Immature Gran # (Auto) 0.02 PT 11.9 INR 1.1 APTT 28 PTT Ratio 1.0 Sodium 138 Potassium 3.9 Chloride 110 H Carbon Dioxide 24 Anion Gap 4 BUN 12 Creatinine 0.60 Est Cr Clr Drug Dosing 153.7 Est GFR ( Amer) 150.0 Est GFR (Non-Af Amer) 129.4 BUN/Creatinine Ratio 20.0 Glucose 79 Calcium 9.2 Magnesium 1.9 Total Bilirubin 0.7 AST 13 ALT 10 Alkaline Phosphatase 45 Troponin I High Sens < 2.3 Total Protein 6.3 Albumin 4.2 Globulin 2.1 L Albumin/Globulin Ratio 2.0 TSH 1.349 HCG, Quant < [address] 09/03/23 12:25 CT SCAN OF THE BRAIN WITHOUT IV CONTRAST CLINICAL HISTORY: CT of the brain dated 01/29/2022. MRI of the brain dated 01/29/2022. TECHNIQUE: Unenhanced axial CT scan of the brain is performed from the vertex to the skull base. A dose lowering technique was utilized adhering to the principles of ALARA. FINDINGS: Brain parenchyma: The brain parenchyma is normal in appearance. There is no hemorrhage, mass effect, or evidence of acute territorial ischemia by CT c tricia. Luis-white matter differentiation is preserved. No extra-axial fluid collection is seen. Ventricles, sulci, cisterns: Normal in configuration. Intracranial vasculature: The visualized intracranial vasculature at the skull base is normal in appearance. Calvarium: Unremarkable. Sinuses and mastoids: The visualized paranasal sinuses are clear. The mastoid air cells are well pneumatized. Orbits: The bony orbits are grossly intact. IMPRESSION: There is no hemorrhage, mass effect, or evidence of acute territorial ischemia by CT criteria. ACT 112: Negative or not required by law. Electronically signed by: Mani Esparza M.D. 09/03/2023 12:46 PM Head CTA 09/03/23 12:25 HEAD CTA HISTORY: Right sided weakness TECHNIQUE: Multiaxial CT images of the head were performed following the intravenous administration of contrast to evaluate the major cerebral vessels. 3D/MIP images were also obtained. Sagittal and coronal reformats were reviewed. A dose lowering technique was utilized adhering to the principles of ALARA. COMPARISON: Head CTA 01/29/2022. FINDINGS: There is no mass, hematoma, midline shift, or acute infarct. Visua lized intracranial internal carotid arteries, distal vertebral arteries, and basilar artery are widely patent. There is no significant stenosis, occlusion, or aneurysm seen within the bilateral ACAs, MCAs, or plastic fixture builder. The major dural venous sinuses are patent. There is a persistent left posterior circulation again noted. IMPRESSION: No significant stenosis, occlusion, or aneurysm within the [place]. ACT 112: Negative or not required by law. Electronically signed by: Scott Hernández M.D. 09/03/2023 1:04 PM Neck CTA 09/03/23 12:25 CT ANGIOGRAM OF THE NECK CLINICAL HISTORY: Right-sided weakness. Strokelike symptoms. COMPARISON STUDY: CT angiogram of the neck dated 01/29/2022. TECHNIQUE: Following the IV administration of 118 of Optiray 320, CT angiogram of the neck was performed from the aortic arch to the skull base. Images are reviewed in the axial, sagittal, and coronal planes. 3-D MIPS images are created and assessed. IV contrast was administered without complication. All measurements were calculated based on NASCET criteria. A dose lowering technique was utilized adhering to the principles of ALARA. FINDINGS: Thoracic aorta: Visualized portions of the thoracic aorta are normal in caliber. The aortic arch demonstrates standard 3-vessel anatomy. Right carotid arterial system: The right common carotid artery is widely patent, as are the right internal and external carotid arteries. Left carotid arterial system: The left common carotid artery is widely patent, as are the left internal and external carotid arteries. Vertebral arteries: Widely patent bilaterally noting left-sided dominance. Subclavian arteries: Widely patent bilaterally. Intracranial vasculature: The visualized intracranial vessels at the skull base are patent. Jugular veins: Patent bilaterally. Brain parenchyma: The visualized brain parenchyma the skull base is within normal limits. Lung apices: Partially visualized upper lobe lung parenchyma appears clear. Soft tissues: The visualized pharyngeal soft tissues are normal in appearance noting angiographic phase technique. The oropharyngeal airway appears widely p atent. The salivary and thyroid glands are normal in appearance. No cervical lymphadenopathy is seen. Skeletal structures: The visualized calvarium at the skull base appears intact. The imaged cervical spine is within normal limits. Sinuses and mastoids: There is a 2.1 cm retention cyst in the right maxillary antrum. The mastoid air cells are well pneumatized. IMPRESSION: Unremarkable CT angiogram of the neck. ACT 112: Negative or not required by law. Electronically signed by: Mani Esparza M.D. 09/03/2023 1:01 PM Chest CTA 09/03/23 12:26 CT ANGIOGRAPHY OF THE CHEST, PULMONARY EMBOLUS PROTOCOL CLINICAL HISTORY: Right sided weakness, cp, SLE, r/o PE COMPARISON STUDY: Chest CT August 23, 2020. Chest radiograph October 24, 2022. TECHNIQUE: Following IV administration of 118 mL of Optiray, helical axial images of the chest were obtained utilizing the pulmonary embolus protocol. Maximal intensity projections and sagittal and coronal reformats were viewed on an independent 3D workstation. IV contrast was administered without complication. Automated exposure control was utilized for the study. A dose lowering technique was utilized adhering to the principles of ALARA. CT DOSE: 1973.95 mGy.cm FINDINGS: No pulmonary emboli are identified. There is no thoracic aortic dissection. Size of the heart is normal. There is no pericardial effusion. No enlarged thoracic lymph nodes are present. There is no pneumothorax or pleural effusion. No consolidation is identified. A 4 mm subpleural left lower lobe nodule on image [address] of August 23, 2020. This is benign. Upper abdomen is unremarkable. IMPRESSION: 1. No pulmonary emboli identified. 2. No acute intrathoracic findings ACT 112: Negative or not required by law. Electronically signed by: Checo Johnson M.D. 09/03/2023 12:54 PM Medications Administered Home Medications Medication Instructions Recorded Confirmed Last Taken hydroxychloroquine 200 mg tablet 400 mg PO HS 07/04/20 09/03/23 01/29/22 clonazepam 0.5 mg tablet 0.5 mg PO BID PRN Anxiety 10/15/20 09/03/23 01/29/22 anifrolumab-fnia 300 mg/2 mL (150 300 mg IV WK 09/03/23 09/03/23 Unknown mg/mL) intravenous solution (Saphnelo) cyanocobalamin (vitamin B-12) 100 100 mcg PO DAILY 09/03/23 09/03/23 Unknown mcg tablet cyclobenzaprine 5 mg tablet 5 mg PO BID PRN muscle spasms 09/03/23 09/03/23 Unknown ergocalciferol (vitamin D2) 50,000 50,000 unit PO 2XWK 09/03/23 09/03/23 Unknown unit tablet etonogestrel 68 mg subdermal 68 mg subdermal UD 09/03/23 09/03/23 Unknown implant (Nexplanon) prednisone 10 mg tablet See Rx Instructions .Route .COMPLEX 09/03/23 09/03/23 Unknown prednisone 5 mg tablet 5 mg PO DAILY 09/03/23 09/03/23 Unknown Active Medications Generic Name Dose Route Start Last Admin Trade Name Freq PRN Reason Stop Dose Admin Acetaminophen 1,000 mg in 100 mls @ 400 mls/hr 09/03/23 15:43 09/03/23 16:05 Ofirmev IV 09/06/23 15:42 Infused Q8H PRN Infusion Pain
[2023-09-03] MEDS: TENECTEPLASE 18 MG in SYRINGE 0 ML IV SCH (15:56)
[2023-09-03] MEDS: ACETAMINOPHEN 1000 MG/100 ML IV IV ONE (15:57)
[2023-09-03] MEDS ORDERED: clonazePAM 0.5 MG TAB PO PRN (16:01)
--- NOTE | 2023-09-03 16:17 | Electrocardiogram Report ---
Test Reason : Blood Pressure : / mmHG Vent. Rate : 063 BPM Atrial Rate : 063 BPM P-R Int : 164 ms QRS Dur : 094 ms QT Int : 394 ms P-R-T Axes : -07 086 031 degrees QTc Int : 403 ms Normal sinus rhythm Low voltage QRS Incomplete right bundle branch block Borderline ECG When compared with ECG of 24-OCT-2022 19:17, Incomplete right bundle branch block is now Present QT has shortened Confirmed by Bennett Monsivais ([id number]) on 09/03/2023 4:16:58 PM Referred By: Confirmed By:Bennett Monsivais
--- NOTE | 2023-09-03 17:24 | History & Physical Report ---
Date of Service September 03, 2023 Assessment & Plan (1) Stroke-like symptoms: Plan: Admit ICU Patient presenting from outpatient office where she was receiving Saphnelo infusion and developed right-sided numbness, tingling, right-sided facial droop. In the ED, head CT, head and neck CTAs unremarkable for acute findings. Stroke alert was called and patient was deemed a TNK candidate which she received. Admit to ICU and follow post TNK protocol with neurochecks, head CT in 24 hours Brain MRI, echo If brain MRI positive for stroke, will need hypercoagulable workup ? Complex migraine vs. conversion disorder Neuro consult (2) SLE (systemic lupus erythematosus): Plan: Currently receiving Saphnelo infusions and Plaquenil Recently relocated back to the area from [place]. Reports that her r heumatologist in [place] had her on prednisone 50 mg daily, after reestablishment with local rheumatology, patient is currently on prednisone taper to taper down to prednisone 5 mg daily (3) Bipolar 1 disorder: (4) Fibromyalgia: (5) Anxiety and depression: Plan: Continue as needed cyclobenzaprine and Klonopin DVT PROPHYLAXIS SCDs due to receiving TNK Patient seen in collaboration with Dr. Peacock. I spent a total of 75 minutes coordinating, documenting, and providing care for this patient excluding time spent in the performance of separately billed services. This included personally reviewing all current laboratories and imaging studies, medication reconciliation, outpatient chart review, and discussion with specialists. Admission and Anticipated Discharge Date Admission Date: September 03, 2023 History of Present Illness Chief Complaint: Strokelike symptoms Primary Care Provider: Luis Eldridge MD 23-year-old female with PMH lupus, bipolar disorder, anxiety, depression, and other problems listed below who presents to the ED for evaluation of strokelike symptoms. History is obtained from the patient and review of outpatient PCP and rheumatology records. Patient was receiving Saphnelo infusion today as an outpatient when she developed right-sided numbness and tingling. Patient reports also the right side of her face was affected with facial droop. Reports that her right arm and right leg felt very heavy. Patient was then sent to the ED for further evaluation. Patient reports a history of complex migraines. Reports that she typically will experience a headache, currently denies headache. Patient recently relocated to the area from [place]. 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 She reestablished with rheumatology locally who currently has her on a tapering dose of prednisone. Patient denies any other recent illnesses, fevers, chills. In the ED, she is hemodynamically stable. Labs are unremarkable. Head CT, head and neck CTA are unremarkable for acute intracranial findings. Chest CTA negative for pulmonary embolism. Stroke alert was called and patient was deemed a candidate for TNK which she received. Allergies Allergy/AdvReac Type Severity Reaction Status Date / Time pineapple Allergy Mild TONGUE Verified 12/15/20 17:01 [facility] Medications Medication Instructions Recorded Confirmed Type hydroxychloroquine 200 mg tablet 400 mg PO HS 07/04/20 09/03/23 History clonazepam 0.5 mg tablet 0.5 mg PO BID PRN Anxiety 10/15/20 09/03/23 History anifrolumab-fnia 300 mg/2 mL (150 300 mg IV WK 09/03/23 09/03/23 History mg/mL) intravenous solution (Saphnelo) cyanocobalamin (vitamin B-12) 100 100 mcg PO DAILY 09/03/23 09/03/23 History mcg tablet cyclobenzaprine 5 mg tablet 5 mg PO BID PRN muscle spasms 09/03/23 09/03/23 History ergocalciferol (vitamin D2) 50,000 50,000 unit PO 2XWK 09/03/23 09/03/23 History unit tablet etonogestrel 68 mg subdermal 68 mg subdermal UD 09/03/23 09/03/23 History implant (Nexplanon) prednisone 10 mg tablet See Rx Instructions .Route .COMPLEX 09/03/23 09/03/23 History prednisone 5 mg tablet 5 mg PO DAILY 09/03/23 09/03/23 History Past Med/Surg History Medical History (Updated 09/03/23 @ 17:20 by JONATHAN Pelayo) Bipolar 1 disorder Fibromyalgia SLE (systemic lupus erythematosus) Depression GERD (gastroesophageal reflux disease) Suicidal behavior ODD (oppositional defiant disorder) Surgical History Hx of tonsillectomy Social History Smoking Status: Current every day smoker Tobacco Type: E-cigarettes / Vaping Hx Alcohol Use: Yes Alcohol type: beer Hx Substance Use: No Preferred Language: Bruneian Communication Ability: Effective [place]geman Helper Required: No Beliefs That Will Affect Care: None Current Living Situation: Parent Other Information That Helps Us Care for You: Yes (Anxiety r/t current life happenings) Feels Safe at Home: Yes Safety Concerns: Feels Safe At This Time Assistive Devices: None Physical Exam Physical Exam: please refer to Dr. Freeman's addendum for physical exam Results & Data Results & Data Vital Signs (Past 12 Hours) Vital Signs Temp Pulse Pulse Resp BP BP Pulse Ox 09/03/23 16:15 56 L 20 102/60 100 09/03/23 16:00 56 L 20 102/60 100 09/03/23 15:45 60 15 106/70 100 09/03/23 15:31 37.0 C 09/03/23 15:24 135/96 09/03/23 15:24 72 18 99 09/03/23 14:59 71 20 103/66 100 09/03/23 14:49 67 20 100 09/03/23 14:49 67 20 103/66 100 09/03/23 13:38 67 14 110/73 100 09/03/23 13:15 62 12 09/03/23 13:00 126/75 09/03/23 13:00 102 H 20 09/03/23 12:50 81 16 100 09/03/23 12:41 68 20 118/69 100 09/03/23 12:40 118/69 09/03/23 12:20 67 16 99 09/03/23 12:10 63 18 99 09/03/23 12:01 59 L 09/03/23 12:00 109/66 09/03/23 12:00 75 15 98 09/03/23 11:30 106/67 09/03/23 11:30 74 14 99 09/03/23 11:10 64 19 100 09/03/23 11:02 36.9 C 67 14 111/65 100 O2 Del Method 09/03/23 16:15 09/03/23 16:00 09/03/23 15:45 09/03/23 15:31 09/03/23 15:24 09/03/23 15:24 Room Air 09/03/23 14:59 Room Air 09/03/23 14:49 Room Air 09/03/23 14:49 Room Air 09/03/23 13:38 Room Air 09/03/23 13:15 09/03/23 13:00 09/03/23 13:00 09/03/23 12:50 09/03/23 12:41 Room Air 09/03/23 12:40 09/03/23 12:20 09/03/23 12:10 09/03/23 12:01 09/03/23 12:00 09/03/23 12:00 09/03/23 11:30 09/03/23 11:30 09/03/23 11:10 09/03/23 11:02 Room Air Laboratory Results Short CBC 09/03/23 Range/Units 11:00 WBC 5.93 (4.8-10.8) K/ul Hgb 12.6 (12.0-16.0) g/dl Hct 37.2 (37.0-47.0) % Plt Count 196 (130-400) K/uL BMP 09/03/23 11:00 Sodium 138 Potassium 3.9 Chloride 110 H Carbon Dioxide 24 BUN 12 Creatinine 0.60 Glucose 79 Calcium 9.2 Liver Function 09/03/23 Range/Units 11:00 Total Bilirubin 0.7 (0.2-1.0) mg/dl AST 13 (13-39) U/L ALT 10 (7-52) U/L Alkaline Phosphatase 45 (34-104) U/L Albumin 4.2 (3.4-5.0) gm/dl Diagnostic Findings Head CT 09/03/23 12:25 CT SCAN OF THE BRAIN WITHOUT IV CONTRAST CLINICAL HISTORY: CT of the brain dated 01/29/2022. MRI of the brain dated 2021. TECHNIQUE: Unenhanced axial CT scan of the brain is performed from the vertex to the skull base. A dose lowering technique was utilized adhering to the principles of ALARA. FINDINGS: Brain parenchyma: The brain parenchyma is normal in appearance. There is no hemorrhage, mass effect, or evidence of acute territorial ischemia by CT criteria. Luis-white matter differentiation is preserved. No extra-axial fluid collection is seen. Ventricles, sulci, cisterns: Normal in configuration. Intracranial vasculature: The visualized intracranial vasculature at the skull base is normal in appearance. Calvarium: Unremarkable. Sinuses and mastoids: The visualized paranasal sinuses are clear. The mastoid air cells are well pneumatized. Orbits: The bony orbits are grossly intact. IMPRESSION: There is no hemorrhage, mass effect, or evidence of acute territorial ischemia by CT criteria. ACT 112: Negative or not required by law. Electronically signed by: Mani Esparza M.D. 09/03/2023 12:46 PM Head CTA 09/03/23 12:25 HEAD CTA HISTORY: Right sided weakness TECHNIQUE: Multiaxial CT images of the head were performed following the intr avenous administration of contrast to evaluate the major cerebral vessels. 3D/MIP images were also obtained. Sagittal and coronal reformats were reviewed. A dose lowering technique was utilized adhering to the principles of ALARA. COMPARISON: Head CTA 01/29/2022. FINDINGS: There is no mass, hematoma, midline shift, or acute infarct. Visualized intracranial internal carotid arteries, distal vertebral arteries, and basilar artery are widely patent. There is no significant stenosis, occlusion, or aneurysm seen within the bilateral ACAs, MCAs, or gear machinist. The major dural venous sinuses are patent. There is a persistent left posterior circulation again noted. IMPRESSION: No significant stenosis, occlusion, or aneurysm within the upper [place] of [place]. ACT 112: Negative or not required by law. Electronically signed by: Scott [place]ández M.D. 09/03/2023 1:04 PM Neck CTA 09/03/23 12:25 CT ANGIOGRAM OF THE NECK CLINICAL HISTORY: Right-sided weakness. Strokelike symptoms. COMPARISON STUDY: CT angiogram of the neck dated 01/29/2022. TECHNIQUE: Following the IV administration of 118 of Optiray 320, CT angiogram of the neck was performed from the aortic arch to the skull base. Images are reviewed in the axial, sagittal, and coronal planes. 3-D MIPS images are created and assessed. IV contrast was administered without complication. All measurements were calculated based on NASCET criteria. A dose lowering technique was utilized adhering to the principles of ALARA. FINDINGS: Thoracic aorta: Visualized portions of the thoracic aorta are normal in caliber. The aortic arch demonstrates standard 3-vessel anatomy. Right carotid arterial system: The right common carotid artery is widely patent, as are the right internal and external carotid arteries. Left carotid arterial system: The left common carotid artery is widely patent, as are the left internal and external carotid arteries. Vertebral arteries: Widely patent bilaterally noting left-sided dominance. Subclavian arteries: Widely patent bilaterally. Intracranial vasculature: The visualized intracranial vessels at the skull base are patent. Jugular veins: Patent bilaterally. Brain parenchyma: The visualized brain parenchyma the skull base is within normal limits. Lung apices: Partially visualized upper lobe lung parenchyma appears clear. Soft tissues: The visualized pharyngeal soft tissues are normal in appearance noting angiographic phase technique. The oropharyngeal airway appears widely patent. The salivary and thyroid glands are normal in appearance. No cervical lymphadenopathy is seen. Skeletal structures: The visualized calvarium at the skull base appears intact. The imaged cervical spine is within normal limits. Sinuses and mastoids: There is a 2.1 cm retention cyst in the right maxillary antrum. The mastoid air cells are well pneumatized. IMPRESSION: Unremarkable CT angiogram of the neck. ACT 112: Negative or not required by law. Electronically signed by: Mani Esparza M.D. 09/03/2023 1:01 PM Chest CTA 09/03/23 12:26 CT ANGIOGRAPHY OF THE CHEST, PULMONARY EMBOLUS PROTOCOL CLINICAL HISTORY: Right sided weakness, cp, SLE, r/o PE COMPARISON STUDY: Chest CT August 23, 2020. Chest radiograph October 24, 2022. TECHNIQUE: Following IV administration of 118 mL of Optiray, helical axial images of the chest were obtained utilizing the pulmonary embolus protocol. Maximal intensity projections and sagittal and coronal reformats were viewed on an independent 3D workstation. IV contrast was administered without complication. Automated exposure control was utilized for the study. A dose lowering technique was utilized adhering to the principles of ALARA. CT DOSE: 1973.95 mGy.cm FINDINGS: No pulmonary emboli are identified. There is no thoracic aortic dissection. Size of the heart is normal. There is no pericardial effusion. No enlarged thoracic lymph nodes are present. There is no pneumothorax or pleural effusion. No consolidation is identified. A 4 mm subpleural left lower lobe nodule on image [address] of August 23, 2020. This is benign. Upper abdomen is unremarkable. IMPRESSION: 1. No pulmonary emboli identified. 2. No acute intrathoracic findings ACT 112: Negative or not required by law. Electronically signed by: Checo Johnson M.D. 09/03/2023 12:54 PM Supervising Physician Co-Signing Physician Notes I have seen and discussed the case with the collaborating advanced practitioner. I agree with the above H&P. I have reviewed and confirmed the patients medical history, the findings on physical examination, and the patients diagnosis and treatment plan with Valentina CASTILLO and agree with the information documented. In short, Ms. Galvez is a 23-year-old female with PMH lupus, bipolar disorder, anxiety, depression who is admitted for stroke like symptoms which appeared during infusion of saphnelo. Patient reported numb sensation like if she took "klonipin" or if she had "lidocaine" all over her body. In ED, given TNK. CTA head/neck, CT brain negative for any mass lesion/occlusions consistent with severity of symptoms. GENERAL APPEARANCE: AxOx4, generally well-appearing HEENT: NC, AT. MMM. EOMI, clear conjunctiva, oropharynx clear. NECK: Supple without lymphadenopathy. No stiffness or restricted ROM. HEART: Normal rate and regular rhythm, normal S1/S1, no m/r/g LUNGS: CTAB, moving air well. No crackles or wheezes are heard. ABDOMEN: Soft, nontender, nondistended with good bowel sounds heard. BACK: No CVAT, no obvious deformity. EXTREMITIES: Without cyanosis, clubbing or edema. NEUROLOGICAL: Alert and oriented, moving all 4 extremities. CN exam inconsistent. ?asymmetric smile with clenched jaw. When eyelids squeezed tight to resist manual opening, there was solid resistance followed by effort base relaxation, then tightening once more. Exchange Operator strength initially equal then both hands "released" equally. Skin: Warm and dry without any rash. #Stroke-like symptoms #Lupus #History of complex migraine -No clear lesion to explain the degree of symptoms on imaging, however, MRI pending to eval further -Neurology consult -Follow up ECHO -Follow up MRI -Plan for ASA in [address] head -Monitor in ICU s/p TNK -Coag work up if ECHO and MRI + -Rheum curbside -Less likely lupus related as patient on high dose steroid +saphenlo Rest of plan as above I spent a total of 35 minutes coordinating, documenting, and providing care for this patient excluding time spent in the performance of separately billed services. All of the aforementioned completed outside of collaborating with the assigned advanced practitioner for a full treatment plan. I have reviewed the advanced practitioner's documentation, and I agree with, and take responsibility for the plan of care
[2023-09-03] MEDS: ICU Protocol for HYPERglycemia SCH (17:32)
--- NOTE | 2023-09-03 18:27 | Magnetic Resonance Report ---
Brain MRI WITHOUT CONTRAST HISTORY: Right arm and leg numbness. Facial numbness. Weakness. stroke like symptoms TECHNIQUE: Multiplanar multisequence MRI of the brain was performed without the use of contrast. COMPARISON STUDY: Head CT 09/03/2023. Brain MRI 01/29/2022. FINDINGS: There are no areas of restricted diffusion to suggest acute infarction. There is retention cyst within the right maxillary sinus measuring 2.3 cm. The orbits are unremarkable. Bulbous appearan ce to the superior aspect of the pituitary gland best seen on coronal image 10 and sagittal image 12 measuring approximately 5 mm. This is similar to the prior study may represent the normal appearance of the pituitary gland. A pituitary microadenoma could also have a similar appearance. The mastoid ai r cells are clear. The ventricles and sulci are within normal limits for age. There is no mass, hemat thomas, midline shift. The major vascular flow-voids at the skull base are well maintained. IMPRESSION: 1. No acute infarct or intracranial hemorrhage. 2. Bulbous appearance to the superior aspect of the pituitary gland which is similar to the prior carly dy and may represent the normal appearance of the pituitary gland or a pituitary. Therefore, six-liliana h follow-up pituitary MRI recommended to ensure stability. ACT 112: Negative or not required by law. Electronically signed by: Scott [place]ández M.D. 09/03/2023 6:25 PM
[2023-09-03] MEDS: HYDROXYCHLOROQUINE SULFATE 200 MG TAB PO SCH (20:16)
[2023-09-03] MEDS: CYCLOBENZAPRINE HCL 5 MG TAB PO PRN (20:58)
[2023-09-03 21:07] LABS: Calcium 9.1 mg/dl (8.6-10.3); Potassium 3.4 mmol/L (3.5-5.1)
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
--- OUTSIDE RECORDS SUMMARY | 2023-09-03 21:07 | External Medical Summary | Summary of Care ---
Author Name Unknown Organization [facility] Address [address] [place] [address] Phone [phone] Care Team Providers Care Purchasing Administrator Name Role Phone Luis Eldridge DO Primary Care Provid er Reason for Visit * Reason Onset Date Comments Follow Up 09/02/2023 Elevated PTH on record review Encounter Details Date Type Department Care Team (Late st Contact Info) Description 09/02/2023 Telephone Rheumatology [facility] [address] [place] [address] Taye Vang PA-C [address] [place] [address] Follow Up (Elevated PTH on record review ) Allergies Active Allergy Reactions Criticality Noted Date [...] Strip 0 05/13/2020 Active OneTouch Delica Plus [id number] 0 07/04/2020 Active Fluticasone Propionate 50 MCG/ACT [...] Fluocinolone Acetonide Scalp 0.01 % External Oil ([place]-Smoothe/FS Scalp) Apply to scalp as needed for [...] with counseling and psychiatric follow up at [facility] [place] as scheduled. Bipolar 1 disorder 08/04/2019 Overview: [...] mRNA, LNP-s, No Pre serve, 2-Dose Series (ScaleGrid) 10/23/2020,10/02/2020 DTaP Dipth/Tet/Acell Pertussis (Infanrix), Peds 01/20/2007 HPV Vaccine, 9-Valent 02/15/2020 IPV - Polio Virus Vaccine (Inact) 01/20/2007 MMR - Measles/Mumps/Rubella Vaccine 01/20/2007 Meningococcal MCV4O Conjugat e Vaccine (Menveo) 02/15/2020 Meningococcal MCV4P Conjugat e Vaccine (Menactra) 02/15/2020,01/13/2018,01/24/2013 PPD 11/09/2022,11/05/2022 Pneumococcal Conjugate Vacci ne, 20-valent ([id number]) 11/04/2022 Seasonal Influenza Virus Vac cine, Unspecified [...] No 09/28/2016 documented as of this encounter Miscellaneous Notes * Telephone Encounter - Taye Vang PA-C - 09/02/2023 11:47 AM EDT My g sent documented in this encounter Plan of Treatment Upcoming Encounters Date Type Department Care Team (Late st Contact Info) Description 09/03/2023 9:00 AM EDT Hem/Onc Treatment Hematology/Oncology Treatment, [place] [address] [place] [phone] Caroline, Chair [address] Hem On[address] [place] [place] [address] 09/07/2023 9:00 AM EDT Office Visit Medical Genetics [address], [place] [address] [place] [address] Blair Altamirano MD [address] [place] [address] 10/27/2023 8:30 AM EDT Office Visit Rheumatology [address] [place] [address] Taye Vang PA-C [facility] [place] [address] 11/03/2023 3:20 PM EDT Office Visit Dermatology [facility] [address] [place] [phone] Odin Irby PA-C [address] [place] [phone] Health Maintenance Due Date Last Done Comments [...] and were consensually agreed upon. Care Teams Purchasing Administrator Relationship Specialty Start Date End Date Luis Eldridge DO [address] [place] [phone] PCP - General Internal Medicine 07/14/22 documented as of this encounter
--- OUTSIDE RECORDS SUMMARY | 2023-09-03 21:07 | External Medical Summary | Summary of Care ---
Author Name Unknown Organization [facility] Address [address] [place] [address] Phone [phone] Care Team Providers Care Block Cableman Name Role Phone Luis Eldridge Darryl Primary Care Provid er Encounter Details Date Type Department Care Team (Late st Contact Info) Description 08/31/[address] [facility] [address] [place] [address] Taye Vang PA-C [address] [place] [address] Allergies Active Allergy Reactions Criticality Noted Date [...] Strip 0 05/13/2020 Active OneTouch Delica Plus [id number] 0 07/04/2020 Active Fluticasone Propionate 50 MCG/ACT [...] a week and wash out 120 mL 10/08/2022 Active Fluocinolone Acetonide Scalp 0.01 % External Oil ([place]-Smoothe/FS Scalp) Apply to scalp as needed for [...] with counseling and psychiatric follow up at [facility] as scheduled. Bipolar 1 disorder 08/04/2019 Overview: [...] mRNA, LNP-s, No Pre serve, 2-Dose Series (TradeBriefs) 10/23/2020,10/02/2020 DTaP Dipth/Tet/Acell Pertussis (Infanrix), Peds 01/20/2007,07/03/2005,09/21/2002,01/11,2001 HIB Hep B - HIB Hepatitis B (Comvax) 01/11/2002, 2001 HPV Vaccine, 9-Valent 02/15/2020 Hepatitis B, 0-19 yrs 2001 IPV - Polio Virus Vaccine (Inact) 2006,07/03/2005,01/11/2002,09/28 MMR - Measles/Mumps/Rubella Vaccine 01/20/2007,0 07/03/2005 Meningococcal MCV4O Conjugat e Vaccine (Menveo) 02/15/2020 Meningococcal MCV4P Conjugat e Vaccine (Menactra) 02/15/2020,01/13/2018,01/24/2013 PPD 11/09/2022,11/05/2022 Pneumococcal Conjugate Vacci ne, 20-valent ([id number]) 11/04/2022 Pneumococcal Conjugate Vacci ne, 7 Valent [...] encounter Miscellaneous Notes * Telephone Encounter - Sarah Orona OSA - 09/02/2023 8:37 AM EDT Called pt and scheduled appt for 09/02 * Telephone Encounter - Sarah Orona OSA - 09/01/2023 3:22 PM EDT Called left message * Telephone Encounter - Christine Brown RN - 09/01/2023 3:14 PM EDT Saphnelo available. Scheduling: please call patient to schedule 2 hour appt "saphnelo" (Taye Vang). Thanks! * Telephone Encounter - Christine Brown RN - 09/01/2023 1:42 PM EDT Referral entered. Prasanna: please advise if/ when saphnelo will be available. Thanks! * Telephone Encounter - Selena Mcneil LPN - 08/31/2023 10:27 AM EDT Last infusion was 08/04/23, so she is due anytime now. Thanks * Telephone Encounter - Christine Brown RN - 08/31/2023 10:23 AM EDT Order received for saphnelo. [place] plan built and routed for signature. Waiting for auth. When auth is back, will need to verify with Prasanna that saphnelo is available. Rheum: when was patients last saphnelo infusion? * Telephone Encounter - Taye Vang PA-C - 08/31/2023 9:42 AM EDT Rheumatology Education, Pre-Certification, and/or Pharmacist Co-Management Request Medication Education: no Pre-Certification: [place]: route all clinic-administered injections and infusions to [place] [id number] Pharmacist Co-Management ([facility]; [place] select "no"): No Pharmacist Co-Management Medication/Disease State Information: Diagnosis: Systemic lupus erythematosus [M32.9] Medication: Saphnelo 300 mg IV every 4 weeks Failed or Intolerant to or Contraindicated: Benlysta, Plaquenil Comments Recently moved back from [place]. Last dose was 08/04/23. Will need to get authorization for provider and location. Rheumatology Pharmacist Disease Modifying Antirheumatic Drug (DMARD) Co- Management (If Applicable) Minimum frequency patient should be seen in person for medication management: As appropriate per clinical condition and patient status By my signature, I understand that my patient will have medication [facility] per established policies, procedures, and protocols. I also certify that this referral may serve as an initiation of service for the management of drug therapy in the above noted patient. [facility] providers will be responsible for scheduling patient visits, obtaining appropriate laboratory studies, and adjusting medication management therapy per patient's need, in addition to those roles spelled out in the clinic policy, procedures, and drug management protocols. I understand that the service provided by the [facility] is voluntary and have informed patient that they can refuse the service at their discretion. I am aware that the [facility] will provide me with a copy of the patient encounter via my [employer]TR[employer] In-Basket. I authorize the [facility] to carryout these activities on my behalf. I consider this program to be a necessary part of the patient's medical care. Taye Vang PA-C documented in this encounter Plan of Treatment Upcoming Encounters Date Type Department Care Team (Late st Contact Info) Description 09/03/2023 9:00 AM EDT Hem/Onc Treatment Hematology/Oncology Treatment, [place] [address] [place] [id number] Caroline, Chair 9 Hem Onc [address] [address] 09/07/2023 9:00 AM EDT Office Visit Medical Genetics [address] [place] [address] Blair Altamirano MD [address] [place] [address] 10/27/2023 8:30 AM EDT Office Visit Rheumatology [address] [place] [address] Taye Vang PA-C [facility] [place] [address] 11/03/2023 3:20 PM EDT Office Visit Dermatology [facility] [address] [place] [address] Odin Irby PA-C [address] [place] [address] Health Maintenance Due Date Last Done Comments [...] erythematosus, unspecified organ involvement status (HCC)- Primary documented in this encounter Advance Directives Latest Code Status on File Code Status Date Activated Date Inactivated Comments Full Code 08/19/2021 8:48 PM 08/25/2021 4:30 PM This order reflects the patients wishes and were consensually agreed upon. Care Teams Block Cableman Relationship Specialty Start Date End Date Luis Eldridge DO [address] [place] [address] PCP - General Internal Medicine 07/14/22 documented as of this encounter
--- OUTSIDE RECORDS SUMMARY | 2023-09-03 21:07 | External Medical Summary | Summary of Care ---
Author Name Unknown Organization [facility] Address [address] [place] [address] Phone [phone] Care Team Providers Care Master Coastal Waters Name Role Phone Luis Eldridge Darryl Primary Care Provid er Encounter Details Date Type Department Care Team (Late st Contact Info) Description 08/31/2023 Telephone Rheumatology [facility] [address] [place] [address] Taye Vang PA-C [address] [place] [address] Allergies Active Allergy Reactions Criticality Noted [...] Strip 0 05/13/2020 Active OneTouch Delica Plus [id number] 0 07/04/2020 Active Fluticasone Propionate 50 MCG/ACT [...] Fluocinolone Acetonide Scalp 0.01 % External Oil ([place]-Smoothe/FS Scalp) Apply to scalp as needed for [...] with counseling and psychiatric follow up at [facility] as scheduled. Bipolar 1 disorder 08/04/2019 Overview: [...] mRNA, LNP-s, No Pre serve, 2-Dose Series (Commun.it) 10/23/2020,10/02/2020 DTaP Dipth/Tet/Acell Pertussis (Infanrix), Peds 01/20/2007 HPV Vaccine, 9-Valent 02/15/2020 IPV - Polio Virus Vaccine (Inact) 01/20/2007 MMR - Measles/Mumps/Rubella Vaccine 01/20/2007 Meningococcal MCV4O Conjugat e Vaccine (Menveo) 02/15/2020 Meningococcal MCV4P Conjugat e Vaccine (Menactra) 02/15/2020,01/13/2018,01/24/2013 PPD 11/09/2022,11/05/2022 Pneumococcal Conjugate Vacci ne, 20-valent ([id number]) 11/04/2022 Seasonal Influenza Virus Vac cine, Unspecified [...] 10:23 AM EDT Order received for saphnelo. [place] plan built and routed for signature. Waiting for auth. When auth is back, will need to verify with Prasanna that saphnelo is available. Rheum: when was patients last saphnelo infusion? * Telephone Encounter - Taye Vang PA-C - 08/31/2023 9:42 AM EDT Rheumatology Education, Pre-Certification, and/or Pharmacist Co-Management Request Medication Education: no Pre-Certification: [place]: [place] [id number] Pharmacist Co-Management ([facility]; [place] select "no"): No Pharmacist Co-Management Medication/Disease State Information: Diagnosis: Systemic lupus erythematosus [M32.9] Medication: Saphnelo 300 mg IV every 4 weeks Failed or Intolerant to or Contraindicated: Benlysta, Plaquenil Comments Recently moved back from [place]. Last dose was 08/04/23. Will need to get authorization for provider and location. Rheumatology Pharmacist Disease Modifying Antirheumatic Drug (DMARD) Co- Management (If Applicable) Minimum frequency patient should be seen in person for medication management: As appropriate per clinical condition and patient status By my signature, I understand that my patient will have medication therapy [facility]) per established policies, procedures, and protocols. I also certify that this referral may serve as an initiation of service for the management of drug therapy in the above noted patient. [facility] providers will be responsible for scheduling patient visits, obtaining appropriate laboratory studies, and adjusting medication management therapy per patient's need, in addition to those roles spelled out in the clinic policy, procedures, and drug management protocols. I understand that the service provided by the [facility] is voluntary and have informed patient that they can refuse the service at their discretion. I am aware that the [facility] will provide me with a copy of the patient encounter via my [employer] In-Basket. I authorize the [facility] to carryout these activities on my behalf. I consider this program to be a necessary part of the patient's medical care. Taye Vang PA-C documented in this encounter Plan of Treatment Upcoming Encounters Date Type Department Care Team (Late st Contact Info) Description 09/07/2023 9:00 AM EDT Office Visit Medical Genetics [address] [place], [place] [phone] Blair Altamirano MD [address] [place] [address] 10/27/2023 8:30 AM EDT Office Visit Rheumatology [address] [address] Taye Vang PA-C [address] [place] [address] 11/03/2023 3:20 PM EDT Office Visit Dermatology [facility] [address] [place] [address] Odin Irby PA-C [address] [place] [address] Health Maintenance Due Date Last Done Comments [...] and were consensually agreed upon. Care Teams Master Coastal Waters Relationship Specialty Start Date End Date Luis Eldridge DO [address] [place] [address] PCP - General Internal Medicine 07/14/22 documented as of this encounter
--- OUTSIDE RECORDS SUMMARY | 2023-09-03 21:07 | External Medical Summary | Summary of Care ---
Author Name Unknown Organization [facility] Address [address] [place] [address] Phone [phone] Care Team Providers Care Assistant Softball Coach Name Role Phone Luis Eldridge Darryl Primary Care Provid er Encounter Details Date Type Department Care Team (Late st Contact Info) Description 08/31/2023 Telephone Rheumatology [facility] [address] [place] [address] Taye Vang PA-C [address] [place] [address] Allergies Active Allergy Reactions Criticality Noted [...] Strip 0 05/13/2020 Active OneTouch Delica Plus [id number] 0 07/04/2020 Active Fluticasone Propionate 50 MCG/ACT [...] Fluocinolone Acetonide Scalp 0.01 % External Oil ([place]-Smoothe/FS Scalp) Apply to scalp as needed for [...] with counseling and psychiatric follow up at [facility] as scheduled. Bipolar 1 disorder 08/04/2019 Overview: [...] mRNA, LNP-s, No Pre serve, 2-Dose Series (Getourguide) 10/23/2020,10/02/2020 DTaP Dipth/Tet/Acell Pertussis (Infanrix), Peds 01/20/2007 HPV Vaccine, 9-Valent 02/15/2020 IPV - Polio Virus Vaccine (Inact) 01/20/2007 MMR - Measles/Mumps/Rubella Vaccine 01/20/2007 Meningococcal MCV4O Conjugat e Vaccine (Menveo) 02/15/2020 Meningococcal MCV4P Conjugat e Vaccine (Menactra) 02/15/2020,01/13/2018,01/24/2013 PPD 11/09/2022,11/05/2022 Pneumococcal Conjugate Vacci ne, 20-valent ([id number]) 11/04/2022 Seasonal Influenza Virus Vac cine, Unspecified [...] 10:23 AM EDT Order received for saphnelo. [place] plan built and routed for signature. Waiting for auth. When auth is back, will need to verify with Prasanna that saphnelo is available. Rheum: when was patients last saphnelo infusion? * Telephone Encounter - Taye Vang PA-C - 08/31/2023 9:42 AM EDT Rheumatology Education, Pre-Certification, and/or Pharmacist Co-Management Request Medication Education: no Pre-Certification: [place]: [place] [id number] Pharmacist Co-Management ([facility]; [place] select "no"): No Pharmacist Co-Management Medication/Disease State Information: Diagnosis: Systemic lupus erythematosus [M32.9] Medication: Saphnelo 300 mg IV every 4 weeks Failed or Intolerant to or Contraindicated: Benlysta, Plaquenil Comments Recently moved back from [place]. Last dose was 08/04/23. Will need to get authorization for provider and location. Rheumatology Pharmacist Disease Modifying Antirheumatic Drug (DMARD) Co- Management (If Applicable) Minimum frequency patient should be seen in person for medication management: As appropriate per clinical condition and patient status By my signature, I understand that my patient will have medication [facility]) per established policies, procedures, and protocols. I also certify that this referral may serve as an initiation of service for the management of drug therapy in the above noted patient. [facility] providers will be responsible for scheduling patient visits, obtaining appropriate laboratory studies, and adjusting medication management therapy per patient's need, in addition to those roles spelled out in the clinic policy, procedures, and drug management protocols. I understand that the service provided by the [facility] Clinic is voluntary and have informed patient that they can refuse the service at their discretion. I am aware that the [facility] Clinic will provide me with a copy of the patient encounter via my [employer] In-Basket. I authorize the [facility] to carryout these activities on my behalf. I consider this program to be a necessary part of the patient's medical care. Taye Vang PA-C documented in this encounter Plan of Treatment Upcoming Encounters Date Type Department Care Team (Late st Contact Info) Description 09/07/2023 9:00 AM EDT Office Visit Medical Genetics [address] [place], [place] [phone] Blair Altamirano MD [address] [place] [address] 10/27/2023 8:30 AM EDT Office Visit Rheumatology [address] [address] Taye Vang PA-C [address] [place] [address] 11/03/2023 3:20 PM EDT Office Visit Dermatology [facility] [address] [place] [address] Odin Irby PA-C [address] [place] [address] Health Maintenance Due Date Last Done Comments [...] were consensually agreed upon. Care Teams Assistant Softball Coach Relationship Specialty Start Date End Date Luis Eldridge DO [address] [place] [address] PCP - General Internal Medicine 07/14/22 documented as of this encounter
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
--- OUTSIDE RECORDS SUMMARY | 2023-09-03 21:08 | External Medical Summary | Summary of Care ---
Author Name Unknown Organization [facility] Address [address] [place] [address] Phone [phone] Care Team Providers Care Ring Making Machine Operator Name Role Phone Luis Eldridgeothy Primary Care Provid er Reason for Visit * Reason Onset Date Comments Appointment 08/19/2023 Encounter Details Date Type Department Care Team (Late st Contact Info) Description 08/19/[address] [facility] [address] [place] [address] Saurav Mayberry MD [address] [place] [address] Appointment Allergies Active Allergy Reactions Criticality [...] Strip 0 05/13/2020 Active OneTouch Delica Plus [id number] 0 07/04/2020 Active Fluticasone Propionate 50 MCG/ACT [...] Fluocinolone Acetonide Scalp 0.01 % External Oil ([place]-Smoothe/FS Scalp) Apply to scalp as needed for [...] with counseling and [place] [facility] [place]. Bipolar 1 disorder 08/04/2019 Overview: [...] PPD 11/09/2022,11/05/2022 Pneumococcal Conjugate Vacci ne, 20-valent ([id number]) 11/04/2022 Pneumococcal Conjugate Vacci ne, 7 Valent [...] Li OSA - 08/26/2023 1:27 PM EDT Enterprise Applications Manager - Patient Related Communication Reason for Call: Angela from [facility] is requesting return call regarding infusion Phone: Thank you JUNIOR Hsu * Telephone Encounter - Saurav Mayberry MD - 08/20/2023 12:38 PM EDT I spoke with medicine. She is still in [place] until the weekend of the or . [...] to state she is moving back to [place] and is due for an infusion, marilin, pt moved for a year to [place], pt will have her notes from rhuematology in [place] faxed to office. Pt is due for an infusion as 09-02-23 and would like to get the infusions in [place]. Please call pt to discuss the infusions , pt is scheduled for first available appt with Dr. Mead 03-16-24 and on fastpass. Pt call back is [phone] documented in this encounter Plan of Treatment Upcoming Encounters Date Type Department Care Team (Late st Contact Info) Description 08/31/2023 9:00 AM EDT Office Visit Rheumatology [address] [place] [address] Taye Vang PA-C [address] [place] [address] [place] [address] 09/07/2023 9:00 AM EDT Office Visit Medical Genetics [address], [place] [address] [place], [place] [phone] Blair Altamirano MD [address] [place], [place] [phone] 09/08/2023 3:40 PM EDT Office Visit Rheumatology [address] [place] [address] Saurav Mayberry MD [address] [place] [address] [place] [address] 11/03/2023 3:20 PM EDT Office Visit Dermatology [facility] [address] [place] [address] Odin Irby PA-C [address] [place] [address] Health Maintenance Due Date Last Done Comments [...] and were consensually agreed upon. Care Teams Ring Making Machine Operator Relationship Specialty Start Date End Date Luis Eldridge DO [address] [place] [address] PCP - General Internal Medicine 07/14/22 documented as of this encounter
--- OUTSIDE RECORDS SUMMARY | 2023-09-03 21:08 | External Medical Summary | Summary of Care ---
Author Name Unknown Organization [facility] Address [address] [place] [address] Phone [phone] Care Team Providers Care Die Cast Supervisor Name Role Phone Luis Elrdidgeothy Primary Care Provid er Reason for Visit * Reason Onset Date Comments Appointment 08/19/2023 Encounter Details Date Type Department Care Team (Late st Contact Info) Description 08/19/2023 Telephone Rheumatology [facility] [address] [place] [address] Saurav Mayberry MD [address] [place] [address] Appointment Allergies Active Allergy Reactions Criticality Noted Date Comments Fentanyl Tachypnea Medium 09/09/2021 Administration of this medicine brings on a severe panic attack for this patient Hpv 4-Valent Vaccine Recombinant Vaccine Rash Medium 09/18/2020 Swelling site inj"arm locked up,pain" per pt Lactose Diarrhea Medium 08/19/2021 Nsaids 07/14/2022 Pineapple Low 11/25/2020 Other reaction(s): TONGUE SWELLS documented as of this encounter (statuses as of 08/27/2023) Medications Medication Sig Dispensed Refills Start Date End Date Status OneTouch Verio In Vitro Strip 0 05/13/2020 Active OneTouch Delica Plus [id number] 0 07/04/2020 Active Fluticasone Propionate 50 MCG/ACT [...] Fluocinolone Acetonide Scalp 0.01 % External Oil ([place]-Smoothe/FS Scalp) Apply to scalp as needed for [...] as of this encounter (statuses as of 08/27/2023) Active Problems Problem Noted Date Diagnosed Date [...] with counseling and psychiatric follow up at [facility] as scheduled. Bipolar 1 disorder 08/04/2019 Overview: [...] as of this encounter (statuses as of 08/27/2023) Resolved Problems Problem Noted Date Diagnosed Date [...] as of this encounter (statuses as of 08/27/2023) Immunizations Name Administration Dates Next Due COVID-19 [...] PPD 11/09/2022,11/05/2022 Pneumococcal Conjugate Vacci ne, 20-valent ([id number]) 11/04/2022 Pneumococcal Conjugate Vacci ne, 7 Valent [...] encounter Miscellaneous Notes * Telephone Encounter - Trish Mcneil LPN - 08/27/2023 8:53 AM EDT [facility] pharmacy is requesting a new prescription to be sent after pt is seen by Taye Vang on 08/31/23. * Telephone Encounter - Rodney Li OSA - 08/26/2023 1:27 PM EDT Drum Cleaner - Patient Related Communication Reason for Call: Angela from [facility] is requesting return call regarding infusion Phone: Thank you JUNIOR Hsu * Telephone Encounter - Saurav Mayberry MD - 08/20/2023 12:38 PM EDT I spoke with medicine. She is still in [place] until the weekend of the or . [...] to state she is moving back to [place] and is due for an infusion, marilin, pt moved for a year to [place], pt will have her notes from [place]ematology in [place] faxed to office. Pt is due for an infusion as 09-02-23 and would like to get the infusions in [place]. Please call pt to discuss the infusions , pt is scheduled for first available appt with Dr. Mead 03-16-24 and on fastpass. Pt call back is [phone] documented in this encounter Plan of Treatment Upcoming Encounters Date Type Department Care Team (Late st Contact Info) Description 08/31/2023 9:00 AM EDT Office Visit Rheumatology [place] [address] [place] [address] Taye Vang PA-C [address] [place] [address] [place] [address] 09/07/2023 9:00 AM EDT Office Visit Medical Genetics [address], [facility] [address] [place], [place] [address] Blair Altamirano MD [address] [place] [address] 09/08/2023 3:40 PM EDT Office Visit Rheumatology [address] [place] [address] Saurav Mayberry MD [address] [place] [address] [place] [address] 11/03/2023 3:20 PM EDT Office Visit Dermatology [facility] [address] [place] [phone] Odin Irby PA-C [address] [place], [place] [phone] Health Maintenance Due Date Last Done Comments [...] and were consensually agreed upon. Care Teams Die Cast Supervisor Relationship Specialty Start Date End Date Luis Eldridge DO [address] [place] [address] PCP - General Internal Medicine 07/14/22 documented as of this encounter
--- OUTSIDE RECORDS SUMMARY | 2023-09-03 21:08 | External Medical Summary | Summary of Care ---
Author Name Unknown Organization [facility] Address [address] [place] [address] Phone [phone] Care Team Providers Care Chef De Partie Name Role Phone Luis Eldridge Darryl Primary Care Provid er Reason for Visit * Reason Onset Date Comments Appointment 08/19/2023 Encounter Details Date Type Department Care Team (Late st Contact Info) Description 08/19/2023 Telephone Rheumatology [facility] [address] [place] [address] Saurav Mayberry MD [address] [place] [address] Appointment Allergies Active Allergy Reactions Criticality Noted Date Comments Fentanyl Tachypnea Medium 09/09/2021 Administration of this medicine brings on a severe panic attack for this patient Hpv 4-Valent Vaccine Recombinant Vaccine Rash Medium 09/18/2020 Swelling site inj"arm locked up,pain" per pt Lactose Diarrhea Medium 08/19/2021 Nsaids 07/14/2022 Pineapple Low 11/25/2020 Other reaction(s): TONGUE SWELLS documented as of this encounter (statuses as of 08/20/2023) Medications Medication Sig Dispensed Refills Start Date End Date Status OneTouch Verio In Vitro Strip 0 05/13/2020 Active OneTouch Delica Plus [id number] 0 07/04/2020 Active Fluticasone Propionate 50 MCG/ACT [...] Fluocinolone Acetonide Scalp 0.01 % External Oil ([place]-Smoothe/FS Scalp) Apply to scalp as needed for [...] as of this encounter (statuses as of 08/20/2023) Active Problems Problem Noted Date Diagnosed Date [...] with counseling and psychiatric follow up at [facility] as scheduled. Bipolar 1 disorder 08/04/2019 Overview: [...] as of this encounter (statuses as of 08/20/2023) Resolved Problems Problem Noted Date Diagnosed Date [...] as of this encounter (statuses as of 08/20/2023) Immunizations Name Administration Dates Next Due COVID-19 mRNA, LNP-s, No Pre serve, 2-Dose Series (Pfizer) 10/23/2020,10/02/2020 DTaP Dipth/Tet/Acell Pertussis (Infanrix), Peds 01/20/2007 HPV Vaccine, 9-Valent 02/15/2020 IPV - Polio Virus Vaccine (Inact) 01/20/2007 MMR - Measles/Mumps/Rubella Vaccine 01/20/2007 Meningococcal MCV4O Conjugat e Vaccine (Menveo) 02/15/2020 Meningococcal MCV4P Conjugat e Vaccine (Menactra) 02/15/2020,01/13/2018,01/24/2013 PPD 11/09/2022,11/05/2022 Pneumococcal Conjugate Vacci ne, 20-valent ([id number]) 11/04/2022 Seasonal Influenza Virus Vac cine, Unspecified [...] encounter Miscellaneous Notes * Telephone Encounter - Saurav Mayberry MD - 08/20/2023 12:38 PM EDT I spoke with medicine. She is still in [place] until the weekend of the or . [...] to state she is moving back to [place] and is due for an infusion, marilin, pt moved for a year to [place], pt will have her notes from rhuematology in [place] faxed to office. Pt is due for an infusion as 09-02-23 and would like to get the infusions in [place]. Please call pt to discuss the infusions , pt is scheduled for first available appt with Dr. Mead 03-16-24 and on fastpass. Pt call back is [phone] documented in this encounter Plan of Treatment Upcoming Encounters Date Type Department Care Team (Late st Contact Info) Description 08/23/2023 9:00 AM EDT Office Visit Rheumatology [place] [phone] [place] [address] Taye Vang PA-C [facility] [place] [address] 09/07/2023 9:00 AM EDT Office Visit Medical Genetics [address], [address] [place] [address] Blair Altamirano MD [address] [place] [address] 09/08/2023 3:40 PM EDT Office Visit Rheumatology [place] [address] [place] [address] Saurav Mayberry MD [address] [facility] [place] [address] 11/03/2023 3:20 PM EDT Office Visit Dermatology [address] [phone] Odin Irby PA-C [address] [place] [address] Health Maintenance Due Date Last Done Comments [...] and were consensually agreed upon. Care Teams Chef De Partie Relationship Specialty Start Date End Date Luis Eldridge DO [address] [place] [address] PCP - General Internal Medicine 07/14/22 documented as of this encounter
--- OUTSIDE RECORDS SUMMARY | 2023-09-03 21:08 | External Medical Summary | Summary of Care ---
Author Name Unknown Organization [facility] Address [address] [place] [address] Phone [phone] Care Team Providers Care Exhibit Electrician Name Role Phone Luis Eldridge DO Primary Care Provid er Reason for Visit * Reason Comments Rheum Follow Up SLE Encounter Details Date Type Department Care Team (Late st Contact Info) Description 08/31/2023 9:00 AM EDT Office Visit Rheumatology [facility] [address] [place] [address] Taye Vang PA-C [address] [place] [address] Other forms of systemic lupus erythematosus, [...] as of this encounter (statuses as of 08/31/2023) Medications Medication Sig Dispensed Refills Start Date End Date Status OneTouch Verio In Vitro Strip 0 0 Active OneTouch Delica Plus [id number] 0 1 Active Fluticasone Propionate 50 MCG/ACT [...] Fluocinolone Acetonide Scalp 0.01 % External Oil ([place]-Smoothe/F S Scalp) Apply to scalp as needed [...] as of this encounter (statuses as of 08/31/2023) Active Problems Problem Noted Date Diagnosed Date [...] with counseling and psychiatric follow up at [facility] as scheduled. Bipolar 1 disorder 08/04/2019 Overview: [...] as of this encounter (statuses as of 08/31/2023) Resolved Problems Problem Noted Date Diagnosed Date [...] as of this encounter (statuses as of 08/31/2023) Immunizations Name Administration Dates Next Due COVID-19 mRNA, LNP-s, No Pre serve, 2-Dose Series (Pfizer) 10/23/2020,10/02/2020 DTaP Dipth/Tet/Acell Pertussis (Infanrix), Peds 01/20/2007 HPV Vaccine, 9-Valent 02/15/2020 IPV - Polio Virus Vaccine (Inact) 01/20/2007 MMR - Measles/Mumps/Rubella Vaccine 01/20/2007 Meningococcal MCV4O Conjugat e Vaccine (Menveo) 02/15/2020 Meningococcal MCV4P Conjugat e Vaccine (Menactra) 02/15/2020,01/13/2018,01/24/2013 PPD 11/09/2022,11/05/2022 Pneumococcal Conjugate Vacci ne, 20-valent ([id number]) 11/04/2022 Seasonal Influenza Virus Vac cine, Unspecified [...] No 09/28/2016 documented as of this encounter Nursing Notes * Selena Mcneil LPN - 08/31/2023 9:11 AM EDT Chief Complaint Patient presents with Rheum Follow Up SLE documented in this encounter Plan of Treatment Upcoming Encounters Date Type Department Care Team (Late st Contact Info) Description 09/07/2023 9:00 AM EDT Office Visit Medical Genetics [address], [place] [address] [place] [address] Blair Altamirano MD [address] [place] [address] 10/27/2023 8:30 AM EDT Office Visit Rheumatology [facility] [address] [place] [address] Taye Vang PA-C [address] [place] [address] 11/03/2023 3:20 PM EDT Office Visit Dermatology [facility] [address] [place] [address] Odin Irby PA-C [address] [place] [address] Scheduled Orders Name Type Priority Associated Diagnoses [...] and were consensually agreed upon. Care Teams Exhibit Electrician Relationship Specialty Start Date End Date Luis Eldridge DO [address] [place] [address] PCP - General Internal Medicine 07/14/22 documented as of this encounter
--- OUTSIDE RECORDS SUMMARY | 2023-09-03 21:08 | External Medical Summary | Summary of Care ---
Author Name Unknown Organization [facility] Address [address] [place] [address] Phone [phone] Care Team Providers Care Tromper Name Role Phone Luis Eldridge DO Primary Care Provid er Reason for Visit * Reason Comments Rheum Follow Up SLE Encounter Details Date Type Department Care Team (Late st Contact Info) Description 08/31/2023 9:00 AM EDT Office Visit Rheumatology [facility] [address] [place] [address] Taye Melgar PA-C [address] [place] [address] Other forms of systemic lupus erythematosus, [...] Strip 0 0 Active OneTouch Delica Plus [id number] 0 1 Active Fluticasone Propionate 50 MCG/ACT [...] Fluocinolone Acetonide Scalp 0.01 % External Oil ([place]-Smoothe/F S Scalp) Apply to scalp as needed [...] and [place] [facility] as [place]. Bipolar 1 disorder 08/04/2019 Overview: [...] mRNA, LNP-s, No Pre serve, 2-Dose Series ([employer]) 10/23/2020,10/02/2020 DTaP Dipth/Tet/Acell Pertussis (Infanrix), Peds 01/20/2007,07/03/2005,09/21/2002,01/11,2001 HIB Hep B - HIB Hepatitis B (Comvax) 01/11/2002, 2001 HPV Vaccine, 9-Valent 02/15/2020 Hepatitis B, 0-19 yrs 2001 IPV - Polio Virus Vaccine (Inact) 2006,07/03/2005,01/11/2002,09/28 MMR - Measles/Mumps/Rubella Vaccine 01/20/2007,0 07/03/2005 Meningococcal MCV4O Conjugat e Vaccine (Menveo) 02/15/2020 Meningococcal MCV4P Conjugat e Vaccine (Menactra) 02/15/2020,01/13/2018,01/24/2013 PPD 11/09/2022,11/05/2022 Pneumococcal Conjugate Vacci ne, 20-valent ([id number]) 11/04/2022 Pneumococcal Conjugate Vacci ne, 7 Valent [...] Genetics [address], [address] [place] [address] Blair Altamirano MD [address] [place] [address] 10/27/2023 8:30 AM EDT Office Visit Rheumatology [place] [address] [place] [address] Taye Melgar PA-C [facility] [employer] [address] 11/03/2023 3:20 PM EDT Office Visit Dermatology [address] [phone] Odin Irby PA-C [address] [place] [address] Scheduled Orders Name Type Priority Associated Diagnoses [...] and were consensually agreed upon. Care Teams Tromper Relationship Specialty Start Date End Date Luis Eldridge DO [address] [place] [address] PCP - General Internal Medicine 07/14/22 documented as of this encounter
--- OUTSIDE RECORDS SUMMARY | 2023-09-03 21:08 | External Medical Summary | Summary of Care ---
Author Name Unknown Organization [facility] Address [address] [place] [address] Phone [phone] Care Team Providers Care Shield Operator Name Role Phone AbhijittalonLuis Darryl Primary Care Provid er Reason for Visit * Reason Onset Date Comments Medication Update 08/26/2023 Encounter Details Date Type Department Care Team (Late st Contact Info) Description 08/26/2023 Telephone Rheumatology [facility] [address] [place] [address] Saurav Mayberry MD [address] [place] [address] Medication Update Allergies Active Allergy Reactions Criticality Noted Date [...] Strip 0 05/13/2020 Active OneTouch Delica Plus [id number] 0 07/04/2020 Active Fluticasone Propionate 50 MCG/ACT [...] Fluocinolone Acetonide Scalp 0.01 % External Oil ([place]-Smoothe/FS Scalp) Apply to scalp as needed for [...] 10/12/2022 Other forms of systemic lupus erythematosus 04/0 12/2022 Suicidal behavior 08/22/2021 Encounter for gynecological [...] with counseling and psychiatric follow up at [facility] as scheduled. Bipolar 1 disorder 08/04/2019 Overview: [...] PPD 11/09/2022,11/05/2022 Pneumococcal Conjugate Vacci ne, 20-valent ([id number]) 11/04/2022 Seasonal Influenza Virus Vac cine, Unspecified [...] encounter Miscellaneous Notes * Telephone Encounter - Linn Aguayo PHARM Tech - 08/26/2023 1:19 PM EDT [facility] calling in regarding scripts from Dr Maybrery. Transferred caller to specialty line documented in this encounter Plan of Treatment Upcoming Encounters Date Type Department Care Team (Late st Contact Info) Description 08/31/2023 9:00 AM EDT Office Visit Rheumatology [address] [place] [address] Taye Vang PA-C [address] [place] [address] [place] [address] 09/07/2023 9:00 AM EDT Office Visit Medical Genetics [address], [address] [place], [place] [phone] Blair Altamirano MD [address] [place] [address] 09/08/2023 3:40 PM EDT Office Visit Rheumatology [address] [place] [address] Saurav Mayberry MD [address] [place] [address] [place] [address] 11/03/2023 3:20 PM EDT Office Visit Dermatology [facility] [address] [place] [address] Odin Irby PA-C [address] [place] [phone] Health Maintenance Due Date Last Done Comments [...] and were consensually agreed upon. Care Teams Shield Operator Relationship Specialty Start Date End Date Luis Eldridge DO [address] [place] [address] PCP - General Internal Medicine 07/14/22 documented as of this encounter
[2023-09-03 21:13] LABS: BUN Creatinine Ratio 12.5 (10-20); Creatinine Clr Calc Pharmacy 144.1 ml/min; Est GFR (African American) 146.8 ml/min; Est GFR (Non-African American) 126.7 ml/min
[2023-09-04 04:35] LABS: Basophils # (auto) 0.05 K/uL (0.00-0.20); Basophils % (auto) 0.5 %; Eosinophils # (auto) 0.07 K/uL (0.00-0.50); Eosinophils % (auto) 0.6 %; Hematocrit (blood only) 35.9 % (37.0-47.0); Hemoglobin 12.3 g/dl (12.0-16.0); Immature Granulocytes # (auto) 0.03 K/uL (0.01-0.20); Immature Granulocytes % (auto) 0.3 %; Lymphocytes # (auto) 2.96 K/uL (1.20-3.40); Lymphocytes % (auto) 27.4 %; Mean Corpuscular Hemoglobin 30.5 pg (25.0-34.0); Mean Corpuscular Hgb Conc 34.3 g/dL (32.0-36.0); Mean Corpuscular Volume 89.1 fL (80.0-100.0); Mean Platelet Volume 9.6 fL (9.4-12.4); Monocytes # (auto) 0.83 K/uL (0.11-0.59); Monocytes % (auto) 7.7 %; Neutrophils # (auto) 6.87 K/uL (1.40-6.50); Neutrophils % (auto) 63.5 %; Platelet Count 212 K/uL (130-400); RDW Coefficient of Variation 12.5 % (11.5-14.5); RDW Standard Deviation 40.7 fL (36.4-46.3); Red Blood Count 4.03 M/uL (4.20-5.40); White Blood Count 10.81 K/ul (4.8-10.8)
[2023-09-04 04:51] LABS: Chol HDL Ratio 2.5 (0-5); Magnesium 1.9 mg/dl (1.7-2.4)
[2023-09-04] MEDS ORDERED: ACETAMINOPHEN 325 MG TAB PO PRN (05:11)
[2023-09-04] MEDS: MAGNESIUM SULFATE / D5W 1 GM/100 ML BAG IV SCH (06:22)
[2023-09-04] MEDS: POTASSIUM CHLORIDE CRTAB 20 MEQ TABCR PO STA (06:22)
--- NOTE | 2023-09-04 06:24 | CT Scan Report ---
Exam(s): CT HEAD Without Contrast EXAM: CT Head Without Intravenous Contrast CLINICAL HISTORY: Reason for exam: headache s/p TNK administratoin - eval hemorrhage. TECHNIQUE: Axial computed tomography images of the head/brain without intravenous contrast. CTDI is 39.03 mGy and DLP is 624.41 mGy-cm. Automated exposure control was utilized for the study. A dose lowering technique was utilized adhering to the principles of ALARA. COMPARISON: No relevant prior studies available. FINDINGS: Brain: Unremarkable. No hemorrhage. No significant white matter disease. No edema. Ventricles: Unremarkable. No ventriculomegaly. Bones/joints: Unremarkable. No acute fracture. Soft tissues: Unremarkable. Sinuses: Unremarkable as visualized. No acute sinusitis. Mastoid air cells: Unremarkable as visualized. No mastoid effusion. IMPRESSION: Normal head/brain CT. Electronically signed by: Esteban Brownlee MD 09/04/23 06:23 AM
--- OUTSIDE RECORDS SUMMARY | 2023-09-04 07:10 | External Medical Summary | Summary of Care ---
Author Name Unknown Organization [facility] Address [address] [place] [address] Phone [phone] Care Team Providers Care Billet Assembler Name Role Phone Luis Eldridge DO Primary Care Provid er Reason for Visit * Reason Comments Infusion Saphnelo * Episode Based Medications (Routine) - Authorized Specialty Diagnoses / Procedures Referred By Contdayton t Referred To Contact Diagnoses Other systemic lupus erythematosus with other organ involvement (HCC) Procedures IA INJECTION, ANIFROLUMAB-FNIA, 1 MG Taye Vang PA-C [address] [employer] [place] [address] Anc Hem/Onc [facility] Caroline [address] [place] [phone] Referral ID Status Reason Start Date Expiration Date V isits Requested Visits Authorized [id number] Authorized 08/31/2023 12/01/2023 [id number] Encounter Details Date Type Department Care Team (Latest Contact Info) Description 09/03/2023 9:00 AM EDT Hem/Onc Treatment Hematology/Oncolog y Treatment, [address] [phone] Caroline, Chair [address] Hem On[address] [place] [address] Other systemic lupus erythematosus with other organ involvement (HCC)* Allergies Active Allergy Reactions Criticality Noted Date Comments Fentanyl Tachypnea Medium 09/09/2021 Administration of this medicine brings on a severe panic attack for this patient Hpv 4-Valent Vaccine Recombinant Vaccine Rash Medium 09/18/2020 Swelling site inj"arm locked up,pain" per pt Lactose Diarrhea Medium 08/19/2021 Nsaids 07/14/2022 Pineapple Low 11/25/2020 Other reaction(s): TONGUE SWELLS documented as of this encounter (statuses as of 09/03/2023) Medications Medication Sig Dispensed Refills Start Date End Date Status OneTouch Verio In Vitro Strip 0 05/13/2020 Active OneTouch Delica Plus [id number] 0 07/04/2020 Active Fluticasone Propionate 50 MCG/ACT [...] Fluocinolone Acetonide Scalp 0.01 % External Oil (Dietrich-Smoothe/FS Scalp) Apply to scalp as needed for [...] as of this encounter (statuses as of 09/03/2023) Active Problems Problem Noted Date Diagnosed Date [...] and [place] [facility] [place]. Bipolar 1 disorder 08/04/2019 Overview: [...] as of this encounter (statuses as of 09/03/2023) Resolved Problems Problem Noted Date Diagnosed Date [...] as of this encounter (statuses as of 09/03/2023) Immunizations Name Administration Dates Next Due COVID-19 mRNA, LNP-s, No Pre serve, 2-Dose Series (Pfizer) 10/23/2020,10/02/2020 DTaP Dipth/Tet/Acell Pertussis (Infanrix), Peds 01/20/2007 HPV Vaccine, 9-Valent 02/15/2020 IPV - Polio Virus Vaccine (Inact) 01/20/2007 MMR - Measles/Mumps/Rubella Vaccine 01/20/2007 Meningococcal MCV4O Conjugat e Vaccine (Menveo) 02/15/2020 Meningococcal MCV4P Conjugat e Vaccine (Menactra) 02/15/2020,01/13/2018,01/24/2013 PPD 11/09/2022,11/05/2022 Pneumococcal Conjugate Vacci ne, 20-valent ([id number]) 11/04/2022 Seasonal Influenza Virus Vac cine, Unspecified [...] Sign Reading Time Taken Comments Blood Pressure 108/71 09/03/2023 10:05 AM EDT Pulse 72 09/03/2023 10:05 AM EDT Temperature 36.7 C (98 F) 09/03/2023 9:58 AM EDT Respiratory Rate 16 09/03/2023 10:05 AM EDT Oxygen Saturation 100% 09/03/2023 10:05 AM EDT Inhaled Oxygen Concentration - - Weight - - Height - - Body Mass Index - - documented in this encounter Functional Status Functional [...] as of this encounter Nursing Notes * Jasmin Choi, LAURA - 09/03/2023 10:52 AM EDT 0957: Pt rang call thornton reporting she feels itchy in the throat, face feels numb and she's dizzy. Infusion stopped. Fluids started. 1000: Solu-Cortef 100mg given. VSS. 1005:IRONWORKER WIRE FENCE ERECTOR evaluated patient. Pt still reports feeling numb in the right side of her face, right shavon right leg feel tingly. Right side of face has a slight droop. Per IRONWORKER WIRE FENCE ERECTOR to call ambulance. Pt upset due to fear of ambulance bill. IRONWORKER WIRE FENCE ERECTOR explained to patient the importance of getting evaluated at the ER. Pt verbalized understanding. 1030: Pt still feeling numbness on right side. Reports it is a tiny bit better but still having thesame symptoms. Ambulated to restroom without assistance. Fluids still infusing. 1040: Ambulance here and patient transported to hospital. IV intact. All info printed and sent along. * Jasmin Choi LPN - 09/03/2023 9:29 AM EDT 0910: Pt arrived for Saphnelo infusion. PIV in RFA. Pt tolerated well. VSS. APAP/Benadryl given perorder. No complaints at this time. documented in this encounter Plan of Treatment Upcoming Encounters Date Type Department Care Team (Late st Contact Info) Description 09/07/2023 9:00 AM EDT Office Visit Medical Genetics [address], [address] [place] [address] Blair Altamirano MD [address] [place] [address] 10/01/2023 9:15 AM EDT Hem/Onc Treatment Hematology/Oncology Treatment, [address] [place] [address] Caroline, Chair 8 [address] [address] 10/27/2023 8:30 AM EDT Office Visit Rheumatology [facility] [address] [place], [place] [address] Taye Vang PA-C [address] [employer] [place] [address] 10/29/2023 9:15 AM EDT Hem/Onc Treatment Hematology/Oncology Treatment, [address], [place] [id number] Caroline, Chair 8 Hem Onc Scene [address] [facility], [place] [address] 11/03/2023 3:20 PM EDT Office Visit Dermatology [facility] [address] [place] [address] Odin Irby PA-C [address] [place] [id number] Health Maintenance Due Date Last Done Comments [...] of this encounter Visit Diagnoses Diagnosis Other systemic lupus erythematosus with other organ involvement (HCC)- Primary documented in this encounter Administered Medications Active Administered Medications - up to 3 most recent administrations Medication Order MAR Action Action Date Dose Rate Site diphenhydrAMINE (Benadryl) inj 50 mg 50 mg, IV Push, ONCE PRN Other, Hypersensitivity Reaction, Starting on Wed09/03/23 at 0904, Until 3/30/24 at 0903, For 24 hours EPINEPHrine 1 MG/ML inj 0.3 mg 0.3 mg, Intramuscular, ONCE PRN Other, Hypersensitivity Reaction or Anaphylaxis, Starting on Wed09/03/23 at 0904, Until 09/04/23 at 0903, For 24 hours hEParin 100 UNIT/ML Lock Flush inj 500 Units 500 Units (5 mL), IV Lock, PRN Other, IV Flush, Starting on Wed09/03/23 at 0904, Until 09/04/23 at 0903, For 24 hours, Do not flush if lock, PICC, or central line not in place; IV infusing or unable to flush. Hydrocortisone Sod Suc (PF) (Solu-Cortef) inj 100 mg 100 mg, IV Push, ONCE PRN Other, Hypersensitivity Reaction, Starting on Wed09/03/23 at 0904, Until 09/04/23 at 0903, For 24 hours Given 09/03/2023 10:00 AM EDT 100 mg NSS infusion Intravenous, at 50 mL/hr, PRN, Starting on Wed09/03/23 at 1015, Until Discontinued, Maintenance line Start Infusion 09/03/2023 9:15 AM EDT 50 mL/hr oxygen GAS Inhalation, OXYGEN, First dose on Wed09/03/23 at 0945, Until Discontinued, Device/Managed by: Low Flow Device, Goal SPO2 (%): 91-95, Starting Device: Nasal Cannula, Initial Flow Rate (LPM): 2, Lowest Support: Nasal Cannula: Flow 0-6 LPM. Titrate up/down by 1 LPM., Higher Support: Non-Rebreather (NRB) Mask: Minimum of 10 LPM. Titrate to maintain bag inflation., Titration Interval: Q2 minutes and as needed., Notify Provider: For sudden DECREASE in resting SPO2 to less than 85% and when escalating delivery device., Wean patient off Oxygen when the oxygen saturation is greater than or equal to 93% sodium chloride 0.9 % flush central line 10 mL 10 mL, IV Push, PRN Other, IV Flush, Starting on Wed09/03/23 at 0904, Until 09/04/23 at 0903, For 24 hours, Do not flush if lock, PICC, or central line not in place; IV infusing or unable to flush. Inactive Administered Medications - up to 3 most recent administrations Medication Order MAR Action Action Date Dose Rate Site Acetaminophen (Tylenol) tab 650 mg 650 mg, Oral, ONCE, On Wed09/03/23 at 1015, For 1 dose, Maximum of 4 grams (4000 mg) per day. 30 minutes prior to infusion Given 09/03/2023 9:15 AM EDT 650 mg Anifrolumab-fnia (Saphnelo) 300 mg in NSS 100 mL infusion 300 mg, IV Piggyback, ONCE, 1 dose, On Wed09/03/23 at 1045, Administer over 30 Minutes, Administer through 0.22 micron in-line filter. Flush infusion set with 25 mL of NSS upon completion. Do not administer other medications through same line. Start Infusion 09/03/2023 9:44 AM EDT 300 mg 200 mL/hr diphenhydrAMINE (Benadryl) cap 25 mg 25 mg, Oral, ONCE, On Wed09/03/23 at 1015, For 1 dose, 30 minutes prior to infusion Given 09/03/2023 9:15 AM EDT 25 mg documented in this encounter Advance Directives Latest Code Status on File Code Status Date Activated Date Inactivated Comments Full Code 08/19/2021 8:48 PM 08/25/2021 4:30 PM This order reflects the patients wishes and were consensually agreed upon. Care Teams Billet Assembler Relationship Specialty Start Date End Date Luis Eldridge DO [address] [place] [address] [phone] PCP - General Internal Medicine 07/14/22 documented as of this encounter
[2023-09-04 07:13] LABS: Estimated Average Glucose 91 mg/dl; Hemoglobin A1C 4.8 % (4.5-5.6)
--- NOTE | 2023-09-04 07:17 | Critical Care Progress Note ---
Date of Service September 04, 2023 Assessment & Plan (1) Stroke-like symptoms: (2) SLE (systemic lupus erythematosus): (3) Anxiety and depression: Plan Reason Critically Ill: 23-year-old female with past medical history of lupus admitted to hospital for facial numbness. Got TN K in the ED. Sent to ICU for monitoring Neuro - [facility] ICU: Negative --Strokelike symptoms S/p TNK in the ED 09/03/2023 MRI brain 09/03/2023 was negative for acute intracranial abnormality. Does have increase in size of the pituitary gland which is similar to the previous 1 Continue with neurochecks Repeat CT head in 24 hours Aspirin after 24 hours if no bleed --History of anxiety/depression On clonazepam and buspirone -- Questionable history of conversion disorder Has had multiple admissions in the past on a monthly basis with similar complaints with all the workup being negative Would recommend psych eval as well prior to discharge Cardiac - -- No acute issues Respiratory - -- No acute issues, saturating well on room air CTA chest 09/03/2023 personally reviewed: Small cyst left lower lobe Left lower lobe pleural-based 4 mm pulmonary nodule No significant mediastinal lymphadenopathy GI - -- No acute issues RENAL/LYTES - -- No acute issues Monitor BUNs/creatinine ENDO - -- ICU hyperglycemia protocol HEME - -- Monitor H&H ID - -- No concern for any infectious etiology Rheumatology - -- SLE with recent flareup On anifrolumab weekly along with hydroxychloroquine at home Was also taking prednisone 50 mg, apparently it was started approximately 2 and half months ago. It is recently started to be tapered off by Dr. Mead Recommend Bactrim for PJP prophylaxis and the patient is going to be on for designated 20 mg for more than 21 days --Prophylaxis VTE: None GI: None Lines: Peripheral Diet: Regular Plan: In/out: +1600 mL, urine output not measured Repeat CT head around 1 PM today. If negative okay to be downgrade to medical floor Recommend Bactrim for PJP prophylaxis and the patient is going to be on for designated 20 mg for more than 21 days Will get psych eval as well given the significant history of anxiety/depression along with questionable conversion disorder. Case was discussed with primary team Please note the above document was generated using voice recognition software. It may contain grammatical, syntax or spelling errors.Any formal questions or concerns about the content, text or information contained within the body of this dictation should be directly addressed to the provider for clarification. Admission and Anticipated Discharge Date Admission Date: September 03, 2023 Subjective Patient seen and examined at bedside. No acute distress, no adverse events overnight. Early in the morning today she was complaining of some right-sided head heaviness for which repeat CT head was done and was negative Patient says that she is feeling better compared to yesterday. Slight heaviness on the right side of the face but the numbness has gone She is able to write with the right hand without any issues. No difficulty swallowing, no blurry vision. No nausea vomiting No shortness of breath Systolic blood pressure was in the high 100s to low 110s with MAP in the high 60s to low 70s. Review of Systems 2 Review of Systems: All systems reviewed & are unremarkable except as noted in Subjective Physical Exam 2 Physical Exam: Constitutional: No acute distress HEENT: EOMI, PERRLA, no nystagmus, No clear facial droop appreciated Respiratory system: Good air entry bilaterally, no wheeze, no rhonchi, no crackles CVS: S1-S2 positive, no murmurs or gallops Abdomen: Soft, nontender, nondistended, positive bowel sounds x4 Extremities: +2 pulses bilaterally radialis/ dorsalis pedis, no cyanosis, no edema Neuro: Awake alert oriented x3, cranial nerves II through XII grossly intact, strength left upper and left lower extremity 5 out of 5, right upper extremity 4/5, right lower extremity 5/5 Psych: Normal mood and affect G/U: No Lopez Skin: no rashes, warm and dry Lymphatic: no cervical or axillary lymphadenopathy Results & Data Results & Data Vital Signs (Past 12 Hours) Vital Signs Temp Pulse Pulse Resp BP BP Pulse Ox 09/04/23 06:35 36.6 C 60 16 104/51 L 99 09/04/23 06:00 61 16 99 09/04/23 06:00 88/52 L 09/04/23 05:35 36.6 C 59 L 16 97/58 L 98 09/04/23 05:34 97/58 L 09/04/23 05:34 57 L 24 97 09/04/23 05:05 90/53 L 09/04/23 05:05 90/53 L 09/04/23 04:35 36.7 C 61 16 102/65 98 09/04/23 04:11 66 16 97 09/04/23 04:11 94/53 L 09/04/23 03:35 36.6 C 55 L 16 92/48 L 96 09/04/23 03:00 62 10 L 97 09/04/23 03:00 89/46 L 09/04/23 02:35 36.6 C 71 16 97/45 L 97 09/04/23 02:00 58 L 17 98 09/04/23 02:00 91/45 L 09/04/23 01:35 36.5 C 60 17 89/50 L 97 09/04/23 01:04 64 13 99 09/04/23 01:04 92/48 L 09/04/23 00:35 36.7 C 57 L 16 92/44 L 97 09/04/23 00:34 58 L 16 97 09/04/23 00:00 56 L 09/04/23 00:00 80 20 98 09/04/23 00:00 94/56 L 09/03/23 23:35 36.7 C 63 18 101/58 L 98 09/03/23 23:00 65 18 97 09/03/23 23:00 91/47 L 09/03/23 22:35 36.8 C 57 L 18 108/48 L 98 09/03/23 22:00 64 21 98 09/03/23 22:00 95/42 L 09/03/23 21:35 36.6 C 72 23 95/58 L 77 L 09/03/23 21:05 36.7 C 77 19 106/65 77 L 09/03/23 20:35 36.6 C 69 20 93/51 L 98 09/03/23 20:05 36.6 C 70 15 111/69 100 09/03/23 19:35 36.7 C 64 20 96/53 L 98 O2 Del Method 09/04/23 06:35 Room Air 09/04/23 06:00 09/04/23 06:00 09/04/23 05:35 Room Air 09/04/23 05:34 09/04/23 05:34 09/04/23 05:05 09/04/23 05:05 09/04/23 04:35 Room Air 09/04/23 04:11 09/04/23 04:11 09/04/23 03:35 Room Air 09/04/23 03:00 09/04/23 03:00 09/04/23 02:35 Room Air 09/04/23 02:00 09/04/23 02:00 09/04/23 01:35 Room Air 09/04/23 01:04 09/04/23 01:04 09/04/23 00:35 Room Air 09/04/23 00:34 09/04/23 00:00 09/04/23 00:00 09/04/23 00:00 09/03/23 23:35 Room Air 09/03/23 23:00 09/03/23 23:00 09/03/23 22:35 Room Air 09/03/23 22:00 09/03/23 22:00 09/03/23 21:35 Room Air 09/03/23 21:05 Room Air 09/03/23 20:35 Room Air 09/03/23 20:05 Room Air 09/03/23 19:35 Room Air Laboratory Results 09/04/23 04:07 09/03/23 20:37 Coding Level of Care Code 03321 SUB INP/OBS CARE 3/50MIN Diagnoses Stroke-like symptoms R29.90 SLE (systemic lupus erythematosus) M32.9 Systemic lupus erythematosus organ involvement: unspecified Systemic lupus erythematosus type: unspecified Anxiety and depression F41.9; F32.A (2) SLE (systemic lupus erythematosus) Systemic lupus erythematosus organ involvement: unspecified Systemic lupus erythematosus type: unspecified Qualified Code(s): M32.9 - Systemic lupus erythematosus, unspecified
[2023-09-04] MEDS: CYANOCOBALAMIN (B-12) 100 MCG TABLET PO SCH (08:09)
[2023-09-04] MEDS: predniSONE 10 MG TABLET PO SCH (08:09)
[2023-09-04] MEDS: PLASMA-LYTE A 500 ML IV ONE (10:45)
--- NOTE | 2023-09-04 15:15 | CT Scan Report ---
CT SCAN OF THE BRAIN WITHOUT IV CONTRAST CLINICAL HISTORY: Follow-up status post TPA COMPARISON STUDY: CT of the brain dated 09/04/2023. MRI of the brain dated 09/03/2023. TECHNIQUE: Unenhanced axial CT scan of the brain is performed from the vertex to the skull base. A d ose lowering technique was utilized adhering to the principles of ALARA. CT DOSE: 547.75 mGy.cm FINDINGS: Brain parenchyma: The brain parenchyma is normal in appearance. There is no hemorrhage, mass effect, or evidence of acute territorial ischemia by CT criteria. Luis-white matter differentiation is preser stefania. No extra-axial fluid collection is seen. Ventricles, sulci, cisterns: Normal in configuration. Intracranial vasculature: The visualized intracranial vasculature at the skull base is normal in appe arance. Calvarium: Unremarkable. Sinuses and mastoids: The visualized paranasal sinuses are clear. The mastoid air cells are well pneu matized. Orbits: The bony orbits are grossly intact. IMPRESSION: There is no hemorrhage, mass effect, or evidence of acute territorial ischemia by CT michelle watkins. ACT 112: Negative or not required by law. Electronically signed by: Mani Esparza M.D. 09/04/2023 3:13 PM
[2023-09-04] MEDS ORDERED: STROKE PATIENT DISCHARGE STA (15:21)
--- NOTE | 2023-09-04 15:28 | Discharge Summary ---
Discharge Summary Date of Service September 04, 2023 Notes For Next Care Provider Hypercoag labs as outpatient given small PFO on ECHO Medication Changes From Visit Hydroxyzine 25mg prn for anxiety Bactrim DS 1 tab MWF while on >=20mg predinose daily Admission HPI Per Admitting Provider 23-year-old female with PMH lupus, bipolar disorder, anxiety, depression, and other problems listed below who presents to the ED for evaluation of strokelike symptoms. History is obtained from the patient and review of outpatient PCP and rheumatology records. Patient was receiving Saphnelo infusion today as an outpatient when she developed right-sided numbness and tingling. Patient reports also the right side of her face was affected with facial droop. Reports that her right arm and right leg felt very heavy. Patient was then sent to the ED for further evaluation. Patient reports a history of complex migraines. Reports that she typically will experience a headache, currently denies headache. Patient recently relocated to the area from [place]. Reports that her metal lather there had her on prednisone 50 mg daily. She reestablished with rheumatology locally who currently has her on a tapering dose of prednisone. Patient denies any other recent illnesses, fevers, chills. In the ED, she is hemodynamically stable. Labs are unremarkable. Head CT, head and neck CTA are unremarkable for acute intracranial findings. Chest CTA negative for pulmonary embolism. Stroke alert was called and patient was deemed a candidate for TNK which she received. Admission Exam Per Admitting Provider GENERAL APPEARANCE: AxOx4, generally well-appearing HEENT: NC, AT. MMM. EOMI, clear conjunctiva, oropharynx clear. NECK: Supple without lymphadenopathy. No stiffness or restricted ROM. HEART: Normal rate and regular rhythm, normal S1/S1, no m/r/g LUNGS: CTAB, moving air well. No crackles or wheezes are heard. ABDOMEN: Soft, nontender, nondistended with good bowel sounds heard. BACK: No CVAT, no obvious deformity. EXTREMITIES: Without cyanosis, clubbing or edema. NEUROLOGICAL: Alert and oriented, moving all 4 extremities. CN exam inconsistent. ?asymmetric smile with clenched jaw. When eyelids squeezed tight to resist manual opening, there was solid resistance followed by effort base relaxation, then tightening once more. Blanket Cutting Machine Operator strength initially equal then both hands "released" equally. Skin: Warm and dry without any rash. Principal Dx & Hospital Course #1 = Principal Diagnosis (1) Stroke-like symptoms: (2) SLE (systemic lupus erythematosus): (3) Bipolar 1 disorder: (4) Fibromyalgia: (5) Anxiety and depression: Plan Ms. Galvez is a 23-year-old female with PMH lupus, bipolar disorder, anxiety, depression who is admitted for stroke like symptoms which appeared during infusion of saphnelo. Patient reported numb sensation like if she took "klonipin" or if she had "lidocaine" all over her body. In ED, given TNK on 09/02. Initial CTA head/neck, CT brain negative for any mass lesion/occlusions consistent with severity of symptoms. Repeat imaging negative as well, including MRI. ECHO revealed small patent PFO, but no other concerning factors. Given PFO, hypercoaguable work up ordered, however, given weekend/holiday, will not be processed. Will need as outpatient Patient symptoms resolved shortly after presenting to ICU. Patient evaluated by neurology who feels less likely stroke, but question of possible conversion disorder or acephalic migraine, as patient has risk factors for both. On day of discharge, patient reported blunting sensation of right side of body. She is tearful, but calms with conversation--reporting significant life stressors and adjustments. Patient eating well and no neurologic deficits appreciated on discharge. #Stroke-like symptoms #Lupus #History of complex migraine -No clear lesion to explain the degree of symptoms on imaging, however, MRI pending to eval further -Neurology consult: acephalic migraine v conversion d/o -Follow up ECHO: small PFO -Will encourage OP hypercoag workup -Follow up MRI: negative -Encourage daily ASA 81mg -Monitored in ICU s/p TNK -Repeat CT negative -Rheum curbside -Less likely lupus related as patient on high dose steroid +saphenlo -Given high dose steroids, will start PJP ppx, 1 DS Bactrim MWF sent to pharmacy # Bipolar 1 disorder: # Fibromyalgia: #Anxiety and depression: Continue as needed cyclobenzaprine and Klonopin Small trial of hydroxyzine for additional anxiety control Recommended f/u with PCP Discharge Exam Constitutional WD/WN, vitals as above Respiratory normal respiratory effort, lungs clear to auscultation Cardiovascular RRR, no murmur, no edema Neurologic PERRL, EOMI, accommodation nl, no face palsy, no dysarthria Cranial nerves II-XII intact, strength 5/5 all extremities, reports sensation deficit as "blunted" Updated Medication List Medication Instructions Recorded Confirmed Type hydroxychloroquine 200 mg tablet 400 mg PO HS 07/04/20 09/03/23 History clonazepam 0.5 mg tablet 0.5 mg PO BID PRN Anxiety 10/15/20 09/03/23 History anifrolumab-fnia 300 mg/2 mL (150 300 mg IV WK 09/03/23 09/03/23 History mg/mL) intravenous solution (Saphnelo) cyanocobalamin (vitamin B-12) 100 100 mcg PO DAILY 09/03/23 09/03/23 History mcg tablet cyclobenzaprine 5 mg tablet 5 mg PO BID PRN muscle spasms 09/03/23 09/03/23 History ergocalciferol (vitamin D2) 50,000 50,000 unit PO 2XWK 09/03/23 09/03/23 History unit tablet etonogestrel 68 mg subdermal 68 mg subdermal UD 09/03/23 09/03/23 History implant (Nexplanon) prednisone 10 mg tablet See Rx Instructions .Route .COMPLEX 09/03/23 09/03/23 History prednisone 5 mg tablet 5 mg PO DAILY 09/03/23 09/03/23 History hydroxyzine HCl 25 mg tablet 25 mg PO Q8H PRN anxiety #20 tabs 09/04/23 Rx sulfamethoxazole 800 1 tab PO 3XWK #30 tabs 09/04/23 Rx mg-trimethoprim 160 mg tablet (Bactrim DS) Hospital Stay Data Consultations 09/03/23 14:51 ED Decision to Admit Stat 09/03/23 15:38 Consult Java Security Architect Routine Consult Neurology Routine Diagnostic Imagining Performed 09/03/23 12:25 CT angio head w con Stat CT angio neck with con Stat CT head/brain wo con Stat 09/03/23 12:26 CT angio chest PE protocol Stat 09/03/23 14:55 MR brain wo con Routine 09/04/23 05:11 CT head/brain wo con Stat 09/04/23 14:53 CT head/brain wo con Routine Pending Results Patient Have Any Pending Studies at Discharge: Yes Discharge Instructions Given to Patient (Per Discharging Provider) You were admitted for concerns of stroke-like symptoms. Imaging did not reveal any signs of structural damage that is consistent with the degree/severity of reported symptoms. It is important you follow up with Dr. Mead to discuss your next steps with regarding your infusions and management of lupus. A hypercoagulable needs to be obtained with your PCP/Park Maintenance Technician. These labs can take up to a week or 2 weeks to result. Given that you have been on high dose steroids since prior to your arrival back to the area and on a taper with Rheumatology, it is recommended that you start prophylaxis to prevent a particular lung infection that can occur while on long- term high dose steroid use. -Bactrim DS: Please take 1 tablet on Wednesday, Wednesday, Wed while on steroid dose greater than 20mg daily given prolonged steroid taper You can continue a baby aspirin daily (81 mg) It is important you follow up with Rheumatology, Neurology, and your Primary Care provider. You will be given a short supply of a medication called: Hydroxyzine 25mg tablet, you can take this every 8 hours for stress/anxiety. This still has some sedative like effects, however, less so than medications like clonazepam. Please trial as needed and if effective, consider discussing with your PCP about increasing as needed. PLEASE prioritize drinking electrolyte based drinks and focus on well rounded nutrition to help prevent migraines/headaches, as well as prioritize stress relief/hobbies, social support systems Total Time Total Time Spent Total Time Spent (In Minutes): 45
[2023-09-12 00:22] LABS: Anti Cardiolipin Ab IgG <2.0 GPL-U/mL; Anti Cardiolipin Ab IgM <2.0 MPL-U/mL; Anti-Thrombin III Activity 104 % normal (80-135); B2 Glycoprotein IgG <2.0 U/mL (<20.0); B2 Glycoprotein IgM <2.0 U/mL (<20.0); PTT LA Screen 34 sec (<=40); Protein S Functional(Activity) 70 % normal (60-140)
[2023-09-13 19:54] LABS: Factor 5 Mutation NEGATIVE
[2023-09-30] MEDS ORDERED: predniSONE 5 MG TAB PO SCH (09:00)
== END 2023-09-04 17:01 | disposition home or self-care (01) | DRG 57 ==
LOC: ED 10:53 → 1E 14:21 → INTOOBSV 14:21 → 1E 14:59